=== PATIENT | male | born 1945 | race Caucasian/White ===

== ENCOUNTER 2016-06-16 14:16 | Emergency (ER) | payer OTHER, MEDICARE ==
[~2016-06-16] VITALS: Ht 175.3 cm; Wt 106.0 kg
[~2016-06-16 14:16] MED LIST: APIX1TAB3 PO; ASPI81TA28 PO; ATOR-24 PO; CHOL100010 PO; COEN100C3 PO; GLC/500 PO; HYDR25TA4 PO; LISI40TA PO; METO1TAB69 PO; OXYC-57 PO; POTA10CA28 PO
[2016-06-16 14:19] VITALS: TEMP 36.6; Ht 175.3 cm; Wt 106.0 kg
[2016-06-16] MEDS ORDERED: CHOL100010 PO (15:03)
[2016-06-16] MEDS ORDERED: METF500T5 PO (15:03)
--- NOTE | 2016-06-16 15:16 | DIAGNOSTIC IMAGING REPORT ---
ULTRASOUND LEFT LOWER EXTREMITY VENOUS CLINICAL HISTORY: Left leg pain. COMPARISON STUDY: No priors. TECHNIQUE: Real-time, grayscale, and color Doppler sonography of the deep veins of the left lower extremity was performed from the inguinal crease to the calf. Compression and augmentation were utilized. FINDINGS: There is no sonographic evidence of deep venous thrombosis identified in the left lower extremity. The common femoral, superficial femoral, and popliteal veins are patent and normally compressible. The greater saphenous vein and the profunda femoris vein at the junction with the common femoral vein are clear. The visualized calf veins are patent. A complex popliteal cyst measures 5.2 x 1.4 x 2.6 cm. IMPRESSION: 1. There is no sonographic evidence of deep venous thrombosis identified in the left lower extremity. 2. Popliteal cyst. Electronically signed by: John Vale M.D. 06/16/2016 3:15 PM Dictated Date/Time: 06/16/2016 3:14 PM
[2016-06-16 15:43] VITALS: BP 203/79; PULSE 52; O2SAT 95
--- NOTE | 2016-06-16 15:57 | EMERGENCY ROOM VISIT NOTE ---
History Report prepared by Dario: Jeni Solano Under the Supervision of: Dr. Victoria Xiong D.O. First contact with patient: 14:27 Chief Complaint: LEG PAIN,LEG INJURY Stated Complaint: L LEG PAIN History of Present Illness The patient is a 70 year old male who presents to the Emergency Room with complaints of persistent left leg pain starting last week. He states that he is experiencing pain in the left calf and feeling sore in his upper thigh. He had a stent placed in his left external iliac artery in March of 2016. He is on baby aspirin and Eliquis. He reports that the pain worsens when he walks. He denies any SOB, abdominal pain, changes in bowel movements, or urinary symptoms. Source of History: patient Onset: last week Position: leg (left) Modifying Factors (Worsening): other (walking) Associated Symptoms: No SOB, No abdominal pain, No urinary symptoms Note: Pt denies any changes to bowel movements. Review of Systems See HPI for pertinent positives & negatives. A total of 10 systems reviewed and were otherwise negative. Past Medical & Surgical Medical Problems: (1) Claudication in peripheral vascular disease (2) DDD (degenerative disc disease) Family History Patient reports no known family medical history. Social History Smoking Status: Former Smoker Drug Use: none Marital Status: Occupation Status: retired Current/Historical Medications Scheduled Apixaban (Eliquis), 5 MG PO BID Aspirin (Aspirin Ec), 81 MG PO QAM Atorvastatin (Lipitor), 40 MG PO QPM Cholecalciferol (Vitamin D), 1,000 UNIT PO QAM Coenzyme Q10 (Ubidecarenone) (Co Q-10), 100 MG PO QAM Hydrochlorothiazide (Hctz), 25 MG PO QAM Lisinopril (Zestril), 40 MG PO QAM Metformin Hcl Er (Glucophage Er), 500 MG PO BID Metoprolol Succ (Toprol Xl) (Toprol-Xl ), 100 MG PO QAM Potassium Chloride (Micro-K Ext Rel), 10 MEQ PO BID Scheduled PRN Oxycodone/Acetaminophen 5MG/325MG (Percocet 5MG/325MG), 1-2 TABLETS PO Q4H PRN for Pain Allergies Coded Allergies: No Known Allergies (Unverified , 06/16/16) Physical Exam Vital Signs Date Time Temp Pulse Resp B/P Pulse Ox O2 Delivery O2 Flow Rate FiO2 06/16/16 15:43 52 16 203/79 95 06/16/16 15:29 52 16 203/79 95 Room Air 06/16/16 14:19 36.6 55 16 240/78 97 Room Air Physical Exam HEENT: Head - normocephalic and atraumatic Pupils are equal, round, and reactive to light. Extraocular eye muscles are intact, and sclera are anicteric. Nose - moist nasal mucosa without discharge. Mouth - moist buccal mucosa. Oropharynx is nonerythematous and there is no tonsillar exudate or edema noted. Neck: Supple; no JVD, nuchal rigidity, cervical lymphadenopathy. Heart: Regular rate and rhythm. There is a normal S1 and S2 with no murmurs, clicks, or gallops appreciated. Lungs: Clear to auscultation bilaterally with no wheezes, rales, or rhonchi. Abdomen: Soft, completely nontender, nondistended, with good bowel sounds. There are no palpable pulsatile masses or hepatosplenomegaly. There is no guarding, rigidity, or rebound noted. Extremities: No evidence of cyanosis, clubbing. There are easily palpable peripheral pulses. Tenderness with palpation over medial left calf and posterior calf. Some fullness noted. No palpable cords. Both feet are warm to touch and have normal sensation. There is no discoloration to the feet. Skin: warm and dry with good turgor and no rashes. Medical Decision & Procedures ER Provider Diagnostic Interpretation: Radiology results as stated below per my review and the radiologist's interpretation: ULTRASOUND LEFT LOWER EXTREMITY VENOUS CLINICAL HISTORY: Left leg pain. COMPARISON STUDY: No priors. TECHNIQUE: Real-time, grayscale, and color Doppler sonography of the deep veins of the left lower extremity was performed from the inguinal crease to the calf. Compression and augmentation were utilized. FINDINGS: There is no sonographic evidence of deep venous thrombosis identified in the left lower extremity. The common femoral, superficial femoral, and popliteal veins are patent and normally compressible. The greater saphenous vein and the profunda femoris vein at the junction with the common femoral vein are clear. The visualized calf veins are patent. A complex popliteal cyst measures 5.2 x 1.4 x 2.6 cm. IMPRESSION: 1. There is no sonographic evidence of deep venous thrombosis identified in the left lower extremity. 2. Popliteal cyst. Electronically signed by: John Vale M.D. 06/16/2016 3:15 PM Dictated Date/Time: 06/16/2016 3:14 PM ED Course 1429: The patient was evaluated in room C3. A complete history and physical examination were performed. Nursing notes and previous electronic medical records were reviewed. The patient went for ultrasound of the left lower extremity to rule out DVT. 1533: I reevaluated the patient. I updated him on the US results. He remembered that he started doing leg exercises with 5 lbs weights last week. I discussed the treatment plan with him. He expressed understanding and agreement. He will be discharged home. Medical Decision The patient is a 70 year old male who presents to the ED with left leg pain. Differential diagnosis includes DVT, femoral strain, stent reocclusion. The US shows no DVT. The likelihood of a DVT was pretty low as the patient is on Eliquis. I do not suspect reocclusion of the stent in the left external iliac artery. The patient does not have any symptoms of claudication. I've asked the patient to avoid lifting weights with the legs over the next week. If the pain persists, he can follow up with his vascular surgeon. Impression Primary Impression: Pain of left calf Scribe Attestation The scribe's documentation has been prepared under my direction and personally reviewed by me in its entirety. I confirm that the note above accurately reflects all work, treatment, procedures, and medical decision making performed by me. Departure Information Dispostion Home / Self-Care Referrals Armando Tovar M.D. (PCP) Forms HOME CARE DOCUMENTATION FORM, IMPORTANT VISIT INFORMATION Patient Instructions [facility] Additional Instructions Rest your left leg. Avoid lifting weights with the leg over the next week. Use tylenol for pain
== END 2016-06-16 15:44 | disposition home or self-care (01) ==
LOC: C.EDB 14:18 → C.EDC 15:44
DX: M79.662 Pain in left lower leg (principal); I73.9 Peripheral vascular disease, unspecified; Z87.891 Personal history of nicotine dependence; Z98.890 Other specified postprocedural states; Z79.82 Long term (current) use of aspirin; Z79.01 Long term (current) use of anticoagulants

== ENCOUNTER 2019-11-22 04:57 | Observation (INO) ==
--- NOTE | 2019-11-03 09:04 | PAT Medication Instructions ---
Medication Instructions Date of Service November 03, 2019 Home Medications Medication Instructions Recorded blood sugar diagnostic #2 box 11/23/18 apixaban 5 mg tablet 5 mg PO BID #180 tab 04/14/19 aspirin [Aspirin Low Dose] 81 mg PO QAM atorvastatin 40 mg PO HS cholecalciferol (vitamin D3) [Vitamin D3] 1,000 unit PO QAM coenzyme Q10 [CoQ-10] 100 mg PO QAM glipizide 2.5 mg PO QAM hydrochlorothiazide 25 mg PO QAM lisinopril 40 mg PO QAM metformin 1,000 mg PO BID metoprolol succinate 100 mg PO QAM potassium chloride 10 meq PO BID amlodipine 5 mg tablet 5 mg PO QAM apixaban 5 mg tablet 5 mg PO BID naproxen sodium [Aleve] 440 mg PO BID PRN ASK your surgeon for instructions naproxen sodium [Aleve] 440 mg PO BID PRN ASK your prescriber and surgeon apixaban 5 mg tablet 5 mg PO BID (in order for spinal anesthesia, Apixaban/Eliquis needs to be stopped 72 hours/3 days before surgery. Please check if okay with doctor that prescribes this to you) STOP taking 2 weeks before surgery (or as soon as possible if surgery is within 2 weeks) coenzyme Q10 [CoQ-10] 100 mg PO QAM DO NOT take the morning of surgery cholecalciferol (vitamin D3) [Vitamin D3] 1,000 unit PO QAM glipizide 2.5 mg PO QAM hydrochlorothiazide 25 mg PO QAM lisinopril 40 mg PO QAM metformin 1,000 mg PO BID potassium chloride 10 meq PO BID Take morning of surgery With a small sip of water, OTHERWISE NOTHING TO EAT OR DRINK AFTER MIDNIGHT: aspirin [Aspirin Low Dose] 81 mg PO QAM metoprolol succinate 100 mg PO QAM amlodipine 5 mg tablet 5 mg PO QAM Take evening before surgery atorvastatin 40 mg PO HS metformin 1,000 mg PO BID potassium chloride 10 meq PO BID Other Notes If you have any questions please call us at [phone] or [phone] or [phone] or [phone]
--- NOTE | 2019-11-05 10:25 | Anesthesiology Consultation ---
Date of Service November 05, 2019 Assessment & Plan (1) Encounter for pre-operative examination: *Per PAT assessment on 11/04: Travel screen- Lives in [facility] (retired). [place] [facility] for doctor appt. No travel x 2+ weeks (prior to that, 3+ weeks ago, gypsy adam [facility] [place] grandson). + social distancing/wears PPE. No known COVID-19 positive contacts. No current COVID-19 related symptoms. Surgeon [place] [facility] [place] Awaiting [place]. - Cardiology note: 10/29/19: "Patient is an acceptable surgical risk to proceed with surgery provided he take his usual doses of Metoprolol and Amlodipine... Hold Eliquis x 3 days leading up to surgery." - Eliquis instructions: patient made aware that in order for spinal anesthesia, Eliquis needs to be held 3 days/72 hours prior to surgery. Patient voiced under standing/will check if okay with prescriber. To continue ASA perioperatively. - Check BSG AM DOS - Hx glidescope intubation: Left shoulder arthroscopy: 07/08/18: Grade view 2, Glidescope #4, ETT 8.0 at [facility] Chart Review Chart Review: Acceptable Risk for Surgery (pending surgeon-ordered PCP clearance (Dr. Neri)) and Patient seen in Pre Admission Testing Teaching & Discussion Pre-Anesthesia Teaching/Discussion Notes: Instructed NPO after midnight before surgery,except medications with 15 cc of water. Medication instructions provided according to the PAT guidelines. History Surgery Operation Date: 11/22/19 09:30 Proposed Procedures p Right Total Knee Arthroplasty - Pascual Toussaint MD Height/Weight Height: 5 ft 9 in Weight: 112.6 kg Allergies Allergy/AdvReac Type Severity Reaction Status Date / Time No Known Drug Allergies Allergy Verified 11/02/19 11:50 Medications Home Medications Medication Instructions Recorded Confirmed Last Taken aspirin [Aspirin Low Dose] 81 mg PO QAM 05/19/18 11/02/19 10/25/18 atorvastatin 40 mg PO HS 05/19/18 11/02/19 10/25/18 18:00 cholecalciferol (vitamin D3) 1,000 unit PO QAM 02/12/19 07/28/20 07/22/19 [Vitamin D3] coenzyme Q10 [CoQ-10] 100 mg PO QAM 05/19/18 11/02/19 10/25/18 glipizide 2.5 mg PO QAM 05/19/18 11/02/19 10/25/18 06:00 hydrochlorothiazide 25 mg PO QAM 05/19/18 11/02/19 10/25/18 06:00 lisinopril 40 mg PO QAM 05/19/18 11/02/19 10/25/18 06:00 metformin 1,000 mg PO BID 05/19/18 11/02/19 10/23/18 metoprolol succinate 100 mg PO QAM 05/19/18 11/02/19 10/26/18 05:00 potassium chloride 10 meq PO BID 05/19/18 11/02/19 10/25/18 18:00 blood sugar diagnostic #2 box 11/23/18 10/27/19 Unknown amlodipine 5 mg tablet 5 mg PO QAM tab 12/21/18 11/02/19 Unknown apixaban 5 mg tablet 5 mg PO BID #180 tab 04/14/19 11/02/19 Unknown naproxen sodium [Aleve] 440 mg PO BID PRN 11/02/19 11/02/19 Unknown Past Medical History Medical History Atrial fibrillation on Eliquis Chronic back pain Claudication in peripheral vascular disease Diabetes mellitus, type 2 NIDDM Diverticular disease Dyslipidemia Hyperlipidemia Hypertension Obesity Osteoarthritis PAD (peripheral artery disease) s/p Left Common Femoral Endarterectomy and Left Iliac Artery Stent (2015) Temporomandibular joint disorder occasional clicking, no locking Exercise / Class Metabolic Activity II 4-5 Yardwork/Stairs/Walk up hill (no chest pain or sob with one flight of stairs (activity is limited d/t knee pain)) Past Family History Family History Father Family history of diabetes mellitus Heart disease Brother Family history of diabetes mellitus Mother Heart disease Hypertension Past Surgical History Surgical History (Updated 11/05/19 @ 12:26 by Miroslava La) Fusion of spine LUMBAR X2 History of arthroscopy of shoulder History of cataract surgery BILATERAL History of colonoscopy History of difficult intubation Left shoulder arthroscopy: 07/08/18: Grade view 2, Glidescope #4, ETT 8.0 at [facility] History of laminectomy LUMBAR X3 History of tonsillectomy History of total knee replacement LEFT S/P vascular surgery 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 Large epiglottis. Unable to lift out of view. Mijares 3 able to move epiglottic but unable to visualize cors even with cricoid pressure. Glidescope#4 good view of cords. Easy placement of ETT. Past Anesthesia History Difficult Airway, No Family Hx of Anesthesia Complications and Other (Awareness with left TKA) History of PONV No Hx of PONV and Hx of Motion Sickness (rare) Social History Smoking Status: Former smoker Do You Dip or Chew Tobacco: No Smoking End Date: QUIT 15+ YRS AGO Hx Alcohol Use: Yes Alcohol type: beer alcohol intake frequency: a few times a week Hx Substance Use: No substance use type: does not use Review of Systems Patient denies chest pain, shortness of breath, dyspnea on exertion, fever, chills, cough, wheezing, palpitations. Physical Exam Vital Signs VITALS BP 165/81 P 71 TEMP 97.8 SP02 98%RA RESP 16 PHYSICAL Full neck and c-spine range of motion. Full TMJ range of motion. TMD 3 finger breaths Mallampati Score 2 Dentition: missing molars Lungs: clear throughout to auscultation Cardiac: regular rate, irregular rhythm, no murmurs noted Spine: normal Carotid arteries: negative bruit Extremities: no edema Short, thick neck Testing Laboratory Results 11/05/19 10:52 11/05/19 10:52 PT 11.4 Seconds (9.0-12.0) 11/05/19 10:52 INR 1.1 (0.9-1.1) 11/05/19 10:52 APTT 29.9 Seconds (21.0-31.0) 11/05/19 10:52 Hemoglobin A1c 6.9 % (4.5-5.6) H 11/05/19 10:52 Urine Color Yellow 11/05/19 Unknown Urine Appearance Clear (Clear) 11/05/19 Unknown Urine pH 6.5 (4.5-7.5) 11/05/19 Unknown Ur Specific [place] 1.009 (1.000-1.030) 11/05/19 Unknown Urine Protein Negative (Negative) 11/05/19 Unknown Urine Glucose (UA) Negative (Negative) 11/05/19 Unknown Urine Ketones Negative (Negative) 11/05/19 Unknown Urine Nitrite Negative (Negative) 11/05/19 Unknown Ur Leukocyte Esterase Negative (Negative) 11/05/19 Unknown Blood Type A Positive 11/05/19 10:52 Antibody Screen NEGATIVE 11/05/19 10:52 Electrocardiogram Date: 11/05/19 A. fib at 67bpm. Chest X-Ray Date: 11/05/19 No acute process. Mild cardiomegaly. Stress Test Date: 09/06/16 Type: exercise Negative submaximal stress test for ischemia. 7.[address] changes.
--- NOTE | 2019-11-05 11:40 | XRay Report ---
XR chest Pre-admission PA/Lat CLINICAL HISTORY: pat dyspnea COMPARISON STUDY: No previous studies for comparison. FINDINGS: Mild stable cardiomegaly. Diaphragms are smooth. Lungs are clear. IMPRESSION: No acute process. Mild cardiomegaly. ACT 112: Negative or not required by law. The above report was generated using voice recognition software. It may contain grammatical, syntax or spelling errors. Electronically signed by: Maikel Alfaro M.D. 11/05/2019 11:38 AM
[2019-11-05 11:58] LABS: Basophils # (auto) 0.02 K/uL (0-0.2); Basophils % (auto) 0.3 %; Eosinophils # (auto) 0.16 K/uL (0-0.5); Eosinophils % (auto) 2.4 %; Hematocrit (blood only) 40.8 % (42-52); Hemoglobin 14.5 g/dL (14.0-18.0); Immature Granulocytes # (auto) 0.02 K/uL (0.00-0.02); Immature Granulocytes % (auto) 0.3 %; Lymphocytes # (auto) 2.27 K/uL (1.2-3.4); Lymphocytes % (auto) 34.7 %; Mean Corpuscular Hemoglobin 33.2 pg (25-34); Mean Corpuscular Hgb Conc 35.5 g/dL (32-36); Mean Corpuscular Volume 93.4 fL (80-100); Mean Platelet Volume 10.2 fL (7.4-10.4); Monocytes # (auto) 0.74 K/uL (0.11-0.59); Monocytes % (auto) 11.3 %; Neutrophils # (auto) 3.33 K/uL (1.4-6.5); Platelet Count 200 K/uL (130-400); RDW Standard Deviation 44.4 fL (36.4-46.3); Red Blood Count 4.37 M/uL (4.7-6.1); White Blood Count 6.54 K/uL (4.8-10.8)
[2019-11-05 12:04] LABS: Appearance Urine Clear (Clear); Bilirubin Urine Negative (Negative); Blood Urine Negative (Negative); Color Urine Yellow; Glucose Urine UA Negative (Negative); Ketones Urine Negative (Negative); Leukocyte Esterase Urine Negative (Negative); Nitrite Urine Negative (Negative); Protein Urine Negative (Negative); Specific Gravity Urine 1.009 (1.000-1.030); Urobilinogen Urine Negative (Negative); pH Urine 6.5 (4.5-7.5)
[2019-11-05 12:05] LABS: Calcium 9.5 mg/dl (8.5-10.1); Creatinine Clr Calc Pharmacy 67.1 ml/min; Est GFR (African American) 66.7; Est GFR (Non-African American) 57.6; Potassium 4.3 mmol/L (3.5-5.1)
[2019-11-05 12:10] LABS: INR 1.1 (0.9-1.1); Partial Thromboplastin Ratio 1.1; Partial Thromboplastin Time 29.9 Seconds (21.0-31.0); Prothrombin Time 11.4 Seconds (9.0-12.0)
[2019-11-05 12:47] LABS: Estimated Average Glucose 151 mg/dl; Hemoglobin A1C 6.9 % (4.5-5.6)
--- NOTE | 2019-11-06 07:13 | Electrocardiogram Report ---
Test Reason : Blood Pressure : / mmHG Vent. Rate : 067 BPM Atrial Rate : 357 BPM P-R Int : 000 ms QRS Dur : 084 ms QT Int : 396 ms P-R-T Axes : 000 058 054 degrees QTc Int : 418 ms Atrial fibrillation Abnormal ECG When compared with ECG of 29-MAR-2016 09:06, No significant change was found Confirmed by Leobardo Arzate ([id number]) on 11/06/2019 7:12:54 AM Referred By: Pascual Toussaint Confirmed By:Leobardo Arzate
--- NOTE | 2019-11-18 20:49 | History and Physical Report ---
DATE OF ADMISSION: 11/22/2019 CHIEF COMPLAINT: Chronic right knee pain. HISTORY OF PRESENT ILLNESS: This is a 74-year-old male patient of Dr. Toussaint'clarissa complaining of chronic right knee pain, longstanding, now progressively getting worse. The patient has failed conservative treatment including intraarticular injections, anti-inflammatories and the use of a brace. The patient has increased pain with weightbearing activities and his pain does interfere with his activities of daily living. The patient has been diagnosed with end-stage osteoarthritis in his right knee per clinical and radiographic exams. The patient wished to proceed with a right total knee arthroplasty. PAST MEDICAL HISTORY: Hypertension, hypercholesterolemia, atrial fibrillation, diabetes mellitus, rheumatoid arthritis, spine problems, sciatica, obesity and he reports a history of difficult intubation. SOCIAL HISTORY: Nonsmoker and nondrinker. PAST SURGICAL HISTORY: Back surgery x5, left shoulder scope, tonsillectomy, left total knee replacement and stent placement in his right leg. FAMILY HISTORY: Noncontributory. REVIEW OF SYSTEMS: Chronic right knee pain, otherwise denies any shortness of breath, chest pain, nausea, vomiting or any other joint complaints. MEDICATIONS: 1. Aspirin 81 mg daily. 2. Potassium chloride 10 mEq twice daily. 3. Atorvastatin 40 mg daily. 4. Metformin 500 mg 2 tablets twice daily. 5. Lisinopril 40 mg daily. 6. Hydrochlorothiazide 25 mg daily. 7. Metoprolol 100 mg daily. 8. CoQ10 30 mg daily. 9. Eliquis 5 mg twice daily. 10. Vitamin D3 1000 units daily. 11. Amlodipine 5 mg daily. 12. Glipizide 2.5 mg daily with breakfast. ALLERGIES: No known drug allergies. PHYSICAL EXAMINATION: GENERAL: Well-developed, well-nourished 74-year-old male in no acute distress. He is alert and oriented x3 and pleasant. HEENT: Normocephalic, atraumatic. Extraocular motions are intact. Pupils are equal and reactive to light. HEART: Has an irregular beat with regular rhythm associated with atrial fibrillation. LUNGS: Clear. ABDOMEN: Soft and nontender. Bowel sounds are present. EXTREMITIES: Right lower extremity range of motion 0-130. Varus deformity. Medial joint line tenderness, positive Cm's. 5/5 strength with pain, positive crepitation. Neurologically and neurovascularly intact in his right lower extremity. DIAGNOSES: Right knee end-stage osteoarthritis, hypertension, hypercholesterolemia, atrial fibrillation, diabetes mellitus, rheumatoid arthritis, osteoarthritis, spine problems, sciatica and obesity. He does have a history of difficult intubation. PLAN: The patient was advised of his diagnosis. Indications, risks, benefits, postop course have all been reviewed. The patient wished to proceed with a right total knee arthroplasty. Necessary consent forms, preoperative testing and clearances will be obtained.
[2019-11-22] MEDS ORDERED: ROPIVACAINE 0.5% HCL/PF 150 MG, BUPIVACAINE 0.5% MPF 30 ML, EPINEPHrine 30MG/30ML (OR U... INSTIL SCH (06:00)
[2019-11-22] MEDS ORDERED: FAMOTIDINE 20 MG TAB PO SCH (06:00)
[2019-11-22] MEDS ORDERED: GABAPENTIN 300 MG CAP PO SCH (06:00)
[2019-11-22] MEDS ORDERED: METOCLOPRAMIDE HCL 10 MG TABLET PO SCH (06:00)
[2019-11-22] MEDS ORDERED: CEFAZOLIN 2000MG 2,000 MG/15 ML SYR IV SCH (06:00)
[2019-11-22] MEDS ORDERED: CeleBREX 200 MG CAP PO SCH (06:00)
[2019-11-22] MEDS ORDERED: LR 500ML BOLUS, THEN 15ML/HR IV SCH (06:00)
[2019-11-22] MEDS ORDERED: ACETAMINOPHEN 500 MG TAB PO SCH (06:00)
[2019-11-22] MEDS ORDERED: BUPIVACAINE/EPINEPHRINE 0.25% 1:200,000 30 ML VIAL ONE (06:26)
[2019-11-22] MEDS ORDERED: DEXAMETHASONE SOD INJ 4 MG/ML VIAL ONE (06:27)
[2019-11-22] MEDS ORDERED: BUPIVACAINE 0.5 % 5 MG/1 ML PF 10ML VIAL ONE (06:34)
[2019-11-22] MEDS ORDERED: ORTHO JOINT ANESTHETIC ONE (06:38)
[2019-11-22] MEDS ORDERED: BACITRACIN INJ 50,000 UNIT VIAL ONE (06:38)
[2019-11-22] MEDS ORDERED: fentaNYL citrate 100 MCG/2 ML VIAL ONE (06:41)
[2019-11-22] MEDS ORDERED: MIDAZOLAM HCL 1 MG/ML 2ML VIAL ONE (06:41)
[2019-11-22] MEDS ORDERED: ONDANSETRON INJ 2 MG/ML 2 ML VIAL IV PRN ×2 (06:49→10:09)
[2019-11-22] MEDS ORDERED: fentaNYL citrate 100 MCG/2 ML VIAL IV PRN (06:49)
[2019-11-22] MEDS ORDERED: ATROPINE SULFATE 0.1 MG/ML 10ML SYR IV PRN (06:49)
[2019-11-22] MEDS ORDERED: ePHEDrine sulfate 50 MG/ML AMP IV PRN (06:49)
[2019-11-22] MEDS ORDERED: LIDOCAINE HCL 2% 2 ML VIAL/AMP(20MG/ML) INFIL ONE (06:52)
[2019-11-22] MEDS ORDERED: PROPOFOL IV EMULSION 10 MG/ML 20 ML VIAL IV ONE (06:52)
[2019-11-22] MEDS ORDERED: ONDANSETRON INJ 2 MG/ML 2 ML VIAL ONE (06:52)
--- NOTE | 2019-11-22 06:59 | History & Physical Bridge Note ---
Date of Service November 22, 2019 History & Physical Bridge Note I have examined the patient, reviewed the History & Physical and in the interval since the performance of the History & Physical I have noted the following changes of clinical significance: no changes noted
[2019-11-22] MEDS ORDERED: PHENYLEPHRINE 100MCG/ML 5ML SYR ONE ×2 (07:58→08:34)
--- NOTE | 2019-11-22 08:51 | Operative Report ---
Post Operative Report Pre & Post Diagnosis Operation Date: 11/22/19 07:00 Pre-Op Diagnosis: Unilateral Primary Osteoarthritis, Right Knee Post-Op Diagnosis: Unilateral Primary Osteoarthritis, Right Knee I identified the patient and participated in the time-out.: Yes Procedure Operation Date: 11/22/19 07:00 Actual Procedures p Right Total Knee Arthroplasty(Right) - Pascual Toussaint MD Surgeon Pascual Toussaint MD Tree Sapper Celestine GRANGER Estimated Blood Loss 5 Findings Consistent with Post-Op Diagnosis Specimens Bone cuts Drains 2 Hemovac Anesthesia Type MAC Spinal Regional Disposition Accompanied Patient To Recovery: No Disposition: Recovery Room Indications 72-year-old male with chronic progressive osteoarthritis right knee failed conservative management. Prior successful left knee replacement. Wants proceed with right knee replacement. X-rays demonstrate varus knee [id number] medial compartment Description of Procedure The patient was taken to the operating room and anesthetized under spinal MAC regional. Patient was placed supine on the the operating table. A pneumatic tourniquet was placed about the right upper thigh. The knee exam demonstrated varus knee good range of motion no instability. The involved leg was elevated exsanguinated with Esmarch bandage and the pneumatic tourniquet was raised to 325 millimeters mercury. A longitudinal incision was made across the anterior knee. Skin flaps were elevated. An incision was made into the medial retinaculum and extended up into the mid third of the quadriceps tendon and extended down to the tibial tubercle. Intra-articular findings demonstrated primarily medial compartment osteoarthritis grade IV chondromalacia medial femoral condyle and posterior medial tibial plateau. The knee was exposed by excising cruciate ligaments and menisci. The infrapatellar fat pad was resected. The fat pad over the anterior femur at the upper aspect of the articular surface was resected for placement of the component in that area. A subperiosteal peel lateral release was performed around the patella The Verdin [employer] Nephew journey 2.0 posterior stabilized total knee arthroplasty system was utilized for the procedure. The guide karla was placed into the femur and the distal femoral cutting guide was adjusted and pinned in position. The cut was made at 5 degrees of valgus at standard distal femoral cut. Femur sized for size 6 femoral component. The distal femoral cut was made. The size 6, 5 in 1 cutting block was placed. The anterior posterior and chamfer cuts were made. The knee was extended and a free hand cut technique was performed to the patella. The patella with was measured and the width was reproduced using a 35 symmetrical patella component. 3 drill holes are made for the patella component pegs. The tibia was then subluxed. The custom tibial cutting block was pinned in position and the proximal tibial cut was made with the oscillating saw. The size 5 tibial trial was externally rotated in line with the tibial tubercle and pinned in position. The punch for the stem was used. The femoral trial was inserted and centered the notch cutting devices were used and the collet was placed. Tibial trials were used for the insert. Ligamentous balance was achieved through full range of motion with medial posterior medial releases required on the medial side. The size 10 trial gave balanced ligaments through full range of motion. Patella tracking was assessed with range of motion. The patella tracked centrally. The trials were removed. The Orthomix anesthetic cocktail was injected per protocol. The cut bone surfaces and soft tissue were copiously irrigated with antibiotic solution with bacitracin. The final components were cemented with Simplex cement. The final components were Verdin & Nephew journey 2.0 size 6 right femoral component, size 5 tibial baseplate, 10 mm posterior stabilized polyethylene tibial insert, 35 symmetrical patella.. While the cement cured the Betadine soak was used per protocol. When the cement cured the knee was copiously irrigated with pulsatile lavage antibiotic solution with bacitracin. 2 drains were brought out laterally connected to Hemovac. The quadriceps tendon and medial retinaculum were closed with interrupted [id number] #1 Vicryl sutures. The knee was taken through full range of motion and repair was secure. The subcutaneous tissues were closed with 2-0 Vicryl sutures. The skin was closed with esteban. A sterile dressing was applied. The tourniquet was let down and the patient had good capillary refill to the extremity. The patient tolerated the procedure well. My physician assistant professor of philosophy Celestine GRANGER assisted in the procedure including prepping draping leg positioning soft tissue retraction instrument management and assisted in the closure ,dressings application and will participate in postoperative care the patient. I attest to the content of the Intraoperative Record and any orders documented therein. Any exceptions are noted below.
--- NOTE | 2019-11-22 09:45 | XRay Report ---
XR knee RT 1 or 2V routine HISTORY: 74 years-old Male Surgical Post Op right knee total joint arthroplasty COMPARISON: None TECHNIQUE: 2 views of the right knee FINDINGS: Right knee total joint arthroplasty and patella resurfacing. Anterior midline skin esteban are noted along with expected postsurgical soft tissue swelling and deep tissue air with surgical drainage cath eter. No acute fracture, malalignment or retained foreign body. Arterial calcifications are noted. IMPRESSION: Right knee total joint arthroplasty and patella resurfacing with expected postoperative c hanges. ACT 112: Negative or not required by law. The above report was generated using voice recognition software. It may contain grammatical, syntax o r spelling errors. Electronically signed by: Rosalino Smart M.D. 11/22/2019 9:43 AM
[2019-11-22] MEDS ORDERED: bisacodyL 10 MG SUPP PR PRN (10:09)
[2019-11-22] MEDS ORDERED: MAGNESIUM HYDROXIDE SUSP 30 ML UDC PO PRN (10:09)
[2019-11-22] MEDS ORDERED: NALOXONE HCL 0.4 MG/1 ML VIAL/CARP IV PRN (10:09)
[2019-11-22] MEDS ORDERED: HYDROmorphone INJ 0.5 MG/0.5 ML SYR IV PRN (10:09)
--- NOTE | 2019-11-22 10:11 | Anesthesiology Progress Note ---
Date of Service November 22, 2019 Anesthesia Post Procedure Vital Signs Vital Signs: Temp Pulse Pulse Resp BP Pulse Ox 11/22/19 09:55 36.4 C L 70 14 113/66 95 11/22/19 09:45 77 14 122/58 L 95 11/22/19 09:35 73 12 112/65 93 11/22/19 09:25 79 12 113/61 98 11/22/19 09:19 36.6 C 76 14 97/57 L 99 11/22/19 05:39 36.6 C 85 18 167/87 H 95 Transfer of Care Handoff Completed per policy Notes Mental Status: alert / awake / arousable Patient Amnestic to Procedure: Yes Nausea / Vomiting: adequately controlled Pain: adequately controlled Airway Patency, RR, SpO2: stable & adequate BP & HR: stable & adequate Hydration State: stable & adequate Neuraxial Anesthesia: was administered and sensory block is resolving Anesthetic Complications: no major complications apparent
[2019-11-22] MEDS ORDERED: PHARMACY GLYCEMIC MGMT CONSULT PRN (10:22)
[2019-11-22] MEDS ORDERED: GLUCAGON FOR INJ 1 MG VIAL IM PRN (10:30)
[2019-11-22] MEDS ORDERED: DEXTROSE 50% 50 ML SYRINGE IV PRN (10:30)
[2019-11-22] MEDS ORDERED: CARBOHYDRATES FOR HYPOGLYCEMIA PO PRN (10:30)
[2019-11-22] MEDS ORDERED: GLUCOSE 10 TABS/TUBE PO PRN (10:30)
[2019-11-22] MEDS ORDERED: GLUCOSE 40% GEL 15 GM TUBE PO PRN (10:30)
[2019-11-22] MEDS ORDERED: NovoLIN-N (NPH) PER UNIT CHARGE SQ ONE (11:00)
[2019-11-22] MEDS: SODIUM CHLORIDE 0.9% 1000ML 1,000 ML IV SCH ×2 (12:15→21:21)
[2019-11-22] MEDS: INSULIN ASPART 100 UNITS/ML 3 ML PEN SC SCH ×5 (12:19→23:53)
--- NOTE | 2019-11-22 13:20 | Pharmacy Report ---
Glycemic Control Consultation - Date of Service November 22, 2019 - Scope Scope: Glycemic Pharmacist consulted for glycemic control and to write orders per formerly [facility] inpatient glycemic control protocol. - Objective Weight: 117.7 kg Accuchecks BSG (last 24hrs): 11/22/19 11/22/19 11/22/19 05:36 09:22 11:27 POC Glucose 162 H 184 H 200 H HbA1c: Hemoglobin A1c 6.9 % (4.5-5.6) H 11/05/19 10:52 - Recent Pertinent Medications Outpatient Anti-diabetic Regimen: * metformin 1 gm PO BID + glipizide ER 2.5 mg PO daily Risk Factors for Insulin Resistance: * Steroids: dexamethasone 4 mg IV intraoperatively * Recent Surgery: POD 0 for R knee surgery * Diet: T2DM - Assessment & Plan Assessment & Plan: ASSESSMENT: * Mr Chamberlain is a 74 y/o M with a PMH of well controlled T2DM on two oral medications who presents for R knee surgery. Fasting BSG was 162-184 mg/dL. * Pt is maintained on oral antidiabetic agents as an outpatient * Oral agents are not recommended for inpatient use d/t drug interactions, changing PO intake, and difficulty titrating for acute hyper/hypoglycemia. ADA recommends re-initiating outpatient oral agents 1-2 days prior to discharge if/when appropriate if they were held on admission. * Will consider starting metformin tomorrow evening * Start NPH 30 units (weight-based stress of 3) x 1 to cover hyperglycemia from steroids. * Start Novolog weight-based stress of 2-3 for steroid hyperglycemia as well. Added overnight checks. * ADA & AACE recommend a goal blood sugar range 140-180 mg/dl for the majority of critically ill & non-critically ill patients. However, more stringent targets may be selected in individual cases. Will utilize more stringent goal of 110-140mg/dl based on patient age & comorbidities. Additionally, tighter glycemic control is warranted to facilitate wound healing. PLAN FOR INPATIENT GLYCEMIC CONTROL: * Holding outpatient oral diabetes medications - consider starting tomorrow if kidney function and diet okay * Basal insulin * EXPLOSIVE ORDNANCE DISPOSAL SPECIALIST 30 units SQ x 1 * Bolus insulin * NovoLog per scale ACHS or Q6hrs while NPO * Goal Range: Low 110 mg/dL - High 140 mg/dL * Correction Factor: 18 mg/dL/unit * Nutritional / Prandial insulin per carb ratio of 1 unit per 6 grams CHO consumed Recommendation for Discharge * Patient's HbA1C well controlled. Recommend continuing current regimen as an outpatient. * HbA1C = 6.9% * Goal HbA1C is around 7% Thank you.
[2019-11-22] MEDS: CEFAZOLIN 2000MG 2,000 MG/15 ML SYR IV SCH ×2 (14:12→22:10)
[2019-11-22] MEDS: ACETAMINOPHEN 500 MG TAB PO SCH ×2 (14:12→21:04)
--- NOTE | 2019-11-22 16:39 | Hospitalist Consultation ---
Date of Consultation November 22, 2019 Assessment & Plan (1) Status post right knee replacement: - POD#[address] Toussaint - activity and wound care orders as per ortho - pain control with bowel regimen - PT/OT - monitor H/H for acute blood loss anemia and transfuse blood products PRN - EBL 5cc (2) Atrial fibrillation, permanent: -anticoagulated on Eliquis - resume tomorrow per ortho -rate controlled on metoprolol (3) Diabetes mellitus, type 2: -hgb a1c 6.9 10/2019 -hold oral agents and utilize insulin protocol while hospitalized -glycemic pharmacy consult placed by ortho (4) Hypertension: -BP controlled, continue metoprolol and lisinopril -hold HCTZ pending AM labs (5) DVT prophylaxis: -TEDs/SCDs, resume Eliquis tomorrow AM per ortho Thank you for this consultation. We will follow the patient with you during their hospital stay. You [facility] via pager @ [phone]. Supervising Physician Co-Signing Physician Notes I have seen and examined the patient and have discussed the case with the provider above. I agree with the assessment and plan as stated. 74 yo M who is feeling well without pain or nausea in his immediate post-op state. Physical exam reveals normal cardiac and lung exams. He reports walking today and feels good about it. Currently BP is at goal, however, HCTZ is on hold while continuing Lisinopril. Continue to monitor his BP closely and add HCTZ back at dc if not earlier. Also, blood sugar is currently at goal and agree with basal bolus insulin. Thank you for this consultation and we will follow this patient for the remainder of this hospitalization. DO Krunal History of Present Illness Reason for Consultation: Postop medical management Requesting Physician: Dr. Toussaint Attending Physician: Dr. Hector History of Present Illness 74 year old male with PMH DM type II, HTN, chronic afib on Eliquis, and other problems listed below who is s/p right TKA today by Dr. Toussaint. Post operatively the patient is doing well. He reports his pain is well controlled. Denies numbness and tingling to the lower extremities. No chest pain, shortness of breath, or palpitations. Denies lightheadedness and dizziness. No abdominal pain or nausea. He has not voided since surgery. Allergies Allergy/AdvReac Type Severity Reaction Status Date / Time No Known Drug Allergies Allergy Verified 11/02/19 11:50 Home Medications Home Medications Medication Instructions Recorded Confirmed Type aspirin [Aspirin Low Dose] 81 mg PO QAM 05/19/18 11/22/19 History atorvastatin 40 mg PO HS 05/19/18 11/22/19 History cholecalciferol (vitamin D3) 1,000 unit PO QAM 05/19/18 11/22/19 History [Vitamin D3] coenzyme Q10 [CoQ-10] 100 mg PO QAM 05/19/18 11/22/19 History glipizide 2.5 mg PO QAM 05/19/18 11/22/19 History hydrochlorothiazide 25 mg PO QAM 05/19/18 11/22/19 History lisinopril 40 mg PO QAM 05/19/18 11/22/19 History metformin 1,000 mg PO BID 05/19/18 11/22/19 History metoprolol succinate 100 mg PO QAM 05/19/18 11/22/19 History potassium chloride 10 meq PO BID 05/19/18 11/22/19 History blood sugar diagnostic #2 box 11/23/18 10/27/19 Rx amlodipine 5 mg tablet 5 mg PO QAM tab 12/21/18 11/22/19 History apixaban 5 mg tablet 5 mg PO BID #180 tab 04/14/19 11/22/19 Rx naproxen sodium [Aleve] 440 mg PO BID PRN 11/02/19 11/22/19 History Patient History Medical History Atrial fibrillation on Eliquis Chronic back pain Claudication in peripheral vascular disease Diabetes mellitus, type 2 NIDDM Diverticular disease Dyslipidemia Hyperlipidemia Hypertension Obesity Osteoarthritis PAD (peripheral artery disease) s/p Left Common Femoral Endarterectomy and Left Iliac Artery Stent (2015) Temporomandibular joint disorder occasional clicking, no locking Surgical History Fusion of spine LUMBAR X2 History of arthroscopy of shoulder History of cataract surgery BILATERAL History of colonoscopy History of difficult intubation Left shoulder arthroscopy: 07/08/18: Grade view 2, Glidescope #4, ETT 8.0 at [facility] History of laminectomy LUMBAR X3 History of tonsillectomy History of total knee replacement LEFT S/P vascular surgery 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 Large epiglottis. Unable to lift out of view. Mijares 3 able to move epiglottic but unable to visualize cors even with cricoid pressure. Glidescope#4 good view of cords. Easy placement of ETT. Family History Father Family history of diabetes mellitus Heart disease Brother Family history of diabetes mellitus Mother Heart disease Hypertension Social History Smoking Status: Former smoker Smoking End Date: QUIT 15+ YRS AGO; Second Hand Exposure: Yes ( A CHILD); Do You Dip or Chew Tobacco: No; Hx Alcohol Use: Yes Alcohol type: beer Hx Substance Use: No Preferred Language: Irish Communication Ability: Effective Reclamation Engineer Required: No Beliefs That Will Affect Care: None marital status: Current Living Situation: Spouse current occupational status: retired Other Information That Helps Us Care for You: No Feels Safe at Home: Yes Safety Concerns: Feels Safe At This Time Review of Systems Review of Systems: ROS per HPI, all other systems reviewed and negative Physical Exam Constitutional: WD/WN, vitals as above Eyes: PERRL, conjunctivae normal, anicteric sclerae ENMT: external ear and nose normal, oropharynx normal Respiratory: normal respiratory effort, lungs clear to auscultation Cardiovascular: Rate/Rhythm: regular rate and + irregularly irregular Vessels: normal peripheral pulses Extremities: no edema Gastrointestinal (Abdomen): normal bowel sounds, soft, nontender, no hepatosplenomegaly Musculoskeletal: no cyanosis or clubbing, extremities motor strength 5/5 s/p right knee surgery, surgical dressing dry and intact, drain in place draining bloody drainage, CSM checks intact to RLE Skin: no rashes, warm and dry Neurologic: PERRL, EOMI, accommodation nl, no face palsy, no dysarthria Psychiatric: A+Ox3, euthymic affect Results & Data Results & Data ([facility]) Vital Signs (Past 12 Hours) Vital Signs Temp Pulse Pulse Resp BP Pulse Ox 11/22/19 15:16 36.7 C 69 18 130/74 93 11/22/19 13:16 36.5 C 72 72 H 143/73 H 95 11/22/19 12:21 36.6 C 81 17 149/84 H 95 11/22/19 11:14 36.6 C 70 16 137/71 98 11/22/19 10:42 67 18 127/75 97 11/22/19 10:10 36.5 C 72 16 129/71 98 11/22/19 09:55 36.4 C L 70 14 113/66 95 11/22/19 09:45 77 14 122/58 L 95 11/22/19 09:35 73 12 112/65 93 11/22/19 09:25 79 12 113/61 98 11/22/19 09:19 36.6 C 76 14 97/57 L 99 11/22/19 05:39 36.6 C 85 18 167/87 H 95 Medications Administered Current Inpatient Medications Acetaminophen (Acetaminophen 500 Mg Tab) 1,000 mg PO Q8 FERDINAND Stop: 12/22/19 13:59 Last Admin: 11/22/19 14:12 Dose: 1,000 mg Documented by: Amlodipine Besylate (Amlodipine Besylate 5 Mg Tab) 5 mg PO QAM FERDINAND Stop: 12/23/19 08:59 Apixaban (Apixaban 5 Mg Tablet) 5 mg PO BID FERDINAND Stop: 12/23/19 08:59 Aspirin (Aspirin 81 Mg Ectab) 81 mg PO QAM FERDINAND Stop: 12/23/19 08:59 Atorvastatin Calcium (Atorvastatin 40 Mg Tab) 40 mg PO HS FERDINAND Stop: 12/22/19 20:59 Bisacodyl (Bisacodyl 10 Mg Supp) 10 mg TX DAILY PRN PRN Reason: Constipation Stop: 12/22/19 10:08 Dextrose (Dextrose 50% 50 Ml Syringe) 25 - 50 ml IV UD PRN; Protocol PRN Reason: Hypoglycemia Protocol Stop: 12/22/19 10:29 Docusate Sodium (Docusate Sodium 100 Mg Cap) 100 mg PO BID FERDINAND Stop: 12/22/19 20:59 Ferrous Gluconate (Ferrous Gluconate 324 Mg Tab) 324 mg PO BIDM FERDINAND Stop: 12/22/19 16:59 Last Admin: 11/22/19 16:59 Dose: 324 mg Documented by: Glucagon (Glucagon For Inj 1 Mg Vial) 1 mg IM UD PRN; Protocol PRN Reason: Hypoglycemia Protocol Stop: 12/22/19 10:29 Glucose (Glucose 40% Gel 15 Gm Tube) 15 - 30 gm PO UD PRN; Protocol PRN Reason: Hypoglycemia Protocol Stop: 12/22/19 10:29 Glucose (Glucose 10 Tabs/Tube) 4 - 8 tabs PO UD PRN; Protocol PRN Reason: Hypoglycemia Protocol Stop: 12/22/19 10:29 Hydromorphone HCl (Hydromorphone Inj 0.5 Mg/0.5 Ml Syr) 0.5 mg IV Q4H PRN PRN Reason: Pain or Pre PT Stop: 12/06/19 10:08 Cefazolin Sodium (Ancef 2000mg) 2,000 mg in 15 mls @ 3.75 mls/min IV Q8H FERDINAND; Protocol Stop: 11/22/19 23:03 Last Admin: 11/22/19 14:12 Dose: 3.75 mls/min Documented by: Sodium Chloride (Nss 1000ml) 1,000 mls @ 100 mls/hr IV .Q10H FERDINAND Stop: 11/23/19 06:00 Last Admin: 11/22/19 12:15 Dose: 100 mls/hr Documented by: Insulin Aspart (Insulin Aspart 100 Units/Ml 3 Ml Pen) 0 units SC ACHS FERDINAND Stop: 12/22/19 10:59 Last Admin: 11/22/19 17:43 Dose: 9 units Documented by: Insulin Aspart (Insulin Aspart 100 Units/Ml 3 Ml Pen) 0 units SC 0000,[id number] [facility] Stop: 11/23/19 04:01 Lisinopril (Lisinopril 40 Mg Tab) 40 mg PO QAM [facility] Stop: 12/23/19 08:59 Magnesium Hydroxide (Magnesium Hydroxide Susp 30 Ml Udc) 30 ml PO Q6H PRN PRN Reason: Constipation Stop: 12/22/19 10:08 Metoprolol Succinate (Metoprolol Succ 50mg Ext Rel Tab) 100 mg PO QAM [facility] Stop: 12/23/19 08:59 Miscellaneous (Carbohydrates For Hypoglycemia ) 15 - 30 gm PO UD PRN PRN Reason: Hypoglycemia Treatment Stop: 12/22/19 10:29 Miscellaneous Information (Pharmacy Glycemic Mgmt Consult) 1 ea N/A UD PRN PRN Reason: Consult Stop: 12/22/19 10:21 Multivitamins (Multivitamin Tab) 1 tab PO QAM [facility] Stop: 12/23/19 08:59 Naloxone HCl (Naloxone Hcl 0.4 Mg/1 Ml Vial/Carp) 0.1 mg IV Q5M PRN PRN Reason: Oversedation/Resp Depression Stop: 12/22/19 10:08 Ondansetron HCl (Ondansetron Inj 2 Mg/Ml 2 Ml Vial) 4 mg IV Q6H PRN PRN Reason: Nausea And Vomiting Stop: 12/22/19 10:08 Oxycodone HCl (Oxycodone Hcl Ir 5 Mg Tab (Immediate Release)) 5 - 10 mg PO Q4H PRN PRN Reason: Pain or Pre PT Stop: 12/06/19 10:08 Last Admin: 11/22/19 17:03 Dose: 5 mg Documented by: Potassium Chloride (Potassium Chloride 10 Meq Tabcr) 10 meq PO BID [facility] Stop: 12/22/19 20:59 Sennosides (Senna 8.6 Mg Tab) 17.2 mg PO HS [facility] Stop: 12/22/19 20:59
[2019-11-22] MEDS: FERROUS GLUCONATE 324 MG TAB PO SCH (16:59)
[2019-11-22] MEDS: OXYCODONE HCL IR 5 MG TAB (IMMEDIATE RELEASE) PO PRN (17:03)
[2019-11-22] MEDS ORDERED: METFORMIN HCL 500 MG TAB PO SCH (21:00)
[2019-11-22] MEDS ORDERED: ATORVASTATIN 40 MG TAB PO SCH (21:00)
[2019-11-22] MEDS ORDERED: SENNA 8.6 MG TAB PO SCH (21:00)
[2019-11-22] MEDS: POTASSIUM CHLORIDE 10 MEQ TABCR PO SCH (21:03)
[2019-11-22] MEDS: DOCUSATE SODIUM 100 MG CAP PO SCH (21:04)
[2019-11-23] MEDS: INSULIN ASPART 100 UNITS/ML 3 ML PEN SC SCH ×3 (03:46→13:02)
[2019-11-23] MEDS: ACETAMINOPHEN 500 MG TAB PO SCH (05:44)
[2019-11-23] MEDS: OXYCODONE HCL IR 5 MG TAB (IMMEDIATE RELEASE) PO PRN ×2 (05:45→11:41)
[2019-11-23 06:11] LABS: Hematocrit (blood only) 33.5 % (42-52); Hemoglobin 11.8 g/dL (14.0-18.0); Mean Corpuscular Hemoglobin 32.8 pg (25-34); Mean Corpuscular Hgb Conc 35.2 g/dL (32-36); Mean Corpuscular Volume 93.1 fL (80-100); Mean Platelet Volume 9.8 fL (7.4-10.4); Platelet Count 229 K/uL (130-400); RDW Coefficient of Variation 13.1 % (11.5-14.5); RDW Standard Deviation 44.4 fL (36.4-46.3); White Blood Count 13.74 K/uL (4.8-10.8)
[2019-11-23 06:43] LABS: BUN Creatinine Ratio 15.6 (10-20); Calcium 8.1 mg/dl (8.5-10.1); Creatinine Clr Calc Pharmacy 71.6 ml/min; Est GFR (Non-African American) 61.3; Potassium 4.1 mmol/L (3.5-5.1)
[2019-11-23] MEDS ORDERED: NovoLIN-N (NPH) PER UNIT CHARGE SQ SCH (07:30)
[2019-11-23] MEDS: POTASSIUM CHLORIDE 10 MEQ TABCR PO SCH (08:42)
--- NOTE | 2019-11-23 08:42 | Orthopedic Progress Note ---
Date of Service November 23, 2019 Assessment & Plan (1) Status post right knee replacement: POD #1, Right TKA PT/ OT DVT proph- Eliquis D/C plans- Home w OPPT As per medicine. Admission and Anticipated Discharge Date Admission Date: November 22, 2019 Subjective POD #1, Feeling well. Denies SOB, CP, N/V. Pain controlled well. Wishes OPPT Physical Exam Physical Exam: Right knee dressings c/d/i, no drainange. Toes/ ankle mobile. No calf tenderness. A&Ox3. Results & Data ([facility]) Vital Signs (Past 12 Hours) Vital Signs Temp Pulse Resp BP Pulse Ox 11/23/19 07:21 36.4 C L 73 18 149/82 H 97 11/23/19 03:56 36.7 C 67 18 135/77 95 11/23/19 00:04 36.4 C L 71 16 169/76 H 96
[2019-11-23] MEDS: DOCUSATE SODIUM 100 MG CAP PO SCH (08:43)
[2019-11-23] MEDS: FERROUS GLUCONATE 324 MG TAB PO SCH (08:44)
--- NOTE | 2019-11-23 08:50 | Hospitalist Progress Note ---
Date of Service November 23, 2019 Assessment & Plan (1) Status post right knee replacement: - POD#[address] Toussaint - activity and wound care orders as per ortho - pain control with bowel regimen - PT/OT - monitor H/H for acute blood loss anemia and transfuse blood products PRN (2) Atrial fibrillation, permanent: -anticoagulated on Eliquis - resumed this morning per ortho -rate controlled on metoprolol (3) Diabetes mellitus, type 2: -hgb a1c 6.9 10/2019 -hold oral agents and utilize insulin protocol while hospitalized -glycemic pharmacy consult placed by ortho (4) Hypertension: -BP controlled, continue metoprolol and lisinopril -Instructed to resume HCTZ upon return home (5) DVT prophylaxis: Eliquis Patient seen in collaboration with Dr. Schmitt. Please see addendum. Thank you for this consultation. We will follow the patient with you during their hospital stay. You can reach a member of the [facility] Hospitalist Team 28/10 via pager @ [phone]. Admission and Anticipated Discharge Date Admission Date: November 22, 2019 Supervising Physician Co-Signing Physician Notes Pt was seen and examined. Agreed with Marilee BURGESS exam, assessment and plan. Day#1 Status post right Total Knee Arthroplasty performed by Dr. Toussaint. No Postop complications. Hgb Stable. Walk in the hallway with physical therapy. Continue PT/OT. Pain control. Fall precaution. Continue incentive spirometry. Continue monitor. MD Keshia Subjective Seen and examined in 307-1. Feeling well today. Denies surgical site pain and has been participating with therapy this morning. Tolerating diet without issue. Denies fever, chills, headache, lightheadedness, visual changes, chest pain, palpitations, shortness of breath, abdominal pain,dysuria or diarrhea. Passing flatus. Review of Systems Review of Systems: At least ten systems reviewed and negative except as noted in the HPI. Physical Exam Physical Exam: General Appearance: WD/WN, vitals as above, NAD, sitting in bedside chair, pleasant, conversing easily Head: normocephalic, atraumatic Eyes: normal inspection, PERRL, conjunctivae normal, anicteric sclerae ENT: external ear and nose normal, oropharynx normal Neck: trachea midline, no thyromegaly, normal visual inspection Respiratory: normal respiratory effort, lungs clear to auscultation, no wheeze, rales, rhonchi. Normal insp/exp effort, no accessory muscle use Cardiovascular: regular rate, rhythm, no murmur, normal peripheral pulses Chest: normal inspection of chest Abdomen/GI: normal bowel sounds, soft, nontender, no hepatosplenomegaly Extremities/Musculoskeletal: R knee surgical dressing clean, dry, intact. NVI. No cyanosis or clubbing, extremities motor strength 5/5 Neurologic: PERRL, EOMI, accommodation nl, no face palsy, no dysarthria, CN's II-XI intact bilaterally and moves all extremities Psychiatric: A+Ox3, euthymic affect Skin: no rashes, normal color, warm/dry Results & Data Results & Data ([facility]) Vital Signs (Past 12 Hours) Vital Signs Temp Pulse Resp BP Pulse Ox 11/23/19 07:21 36.4 C L 73 18 149/82 H 97 11/23/19 03:56 36.7 C 67 18 135/77 95 11/23/19 00:04 36.4 C L 71 16 169/76 H 96 Laboratory Results Short CBC 11/23/19 Range/Units 05:39 WBC 13.74 H (4.8-10.8) K/uL Hgb 11.8 L (14.0-18.0) g/dL Hct 33.5 L (42-52) % Plt Count 229 (130-400) K/uL BMP 11/23/19 05:39 Sodium 133 L Potassium 4.1 Chloride 102 Carbon Dioxide 24 BUN 18 Creatinine 1.18 Glucose 147 H Calcium 8.1 L
[2019-11-23] MEDS ORDERED: glipiZIDE ER 2.5 MG TABCR PO SCH (09:00)
[2019-11-23] MEDS ORDERED: METOPROLOL SUCC 50MG EXT REL TAB PO SCH (09:00)
[2019-11-23] MEDS ORDERED: lisinopriL 40 MG TAB PO SCH (09:00)
[2019-11-23] MEDS ORDERED: APIXABAN 5 MG TABLET PO SCH (09:00)
[2019-11-23] MEDS ORDERED: ASPIRIN 81 MG ECTAB PO SCH (09:00)
[2019-11-23] MEDS ORDERED: AMLODIPINE BESYLATE 5 MG TAB PO SCH (09:00)
[2019-11-23] MEDS ORDERED: MULTIVITAMIN TAB PO SCH (09:00)
--- NOTE | 2019-11-23 10:09 | Pharmacy Report ---
Glycemic Control Progress Note - Date of Service November 23, 2019 - Scope Glycemic Pharmacist consulted for glycemic control to write orders per [facility] inpatient glycemic control protocol. - Objective Accuchecks BSG(last 24 hours):: 11/22/19 11/22/19 11/22/19 11:27 17:14 20:31 Glucose POC Glucose 200 H 183 H 174 H 11/22/19 11/23/19 11/23/19 23:51 03:43 05:39 Glucose 147 H POC Glucose 163 H 159 H 11/23/19 08:09 Glucose POC Glucose 172 H HbA1c:: Hemoglobin A1c 6.9 % (4.5-5.6) H 11/05/19 10:52 - Recent Pertinent Medications The patient is currently receiving: * Basal insulin: NPH 30 units SQ x 1 * Correctional Insulin: Novolog Correction per scale ACHS Goal Range: Low 110 mg/dL - High 140 mg/dL Correction Factor: 18 mg/dL/unit * Prandial insulin: Per carb ratio of 1 unit per 6 grams CHO consumed - Outpatient Anti-Diabetic Meds metformin 1 gm PO BID glipizide ER 2.5 mg PO daily - Assessment & Plan ASSESSMENT: * See progress note from 11/22/2019 for more background info, in short: * Pt receiving SQ basal bolus insulin regimen for hyperglycemia secondary to baseline DM (outpatient regimen on hold). Patient is POD 1 for R knee. He received dexamethasone 4 mg IV intraoperatively. * Patient is currently receiving an average of 53 units of insulin per day * 30 units of basal insulin * 23 units of prandial/correctional insulin * BSGs ranging 163 - 200 mg/dl over the past 24hrs * Changes needed to insulin regimen: * AM Fasting BSG = 147 mg/dl. This is slightly above goal range for patient based on inpatient targets and co-morbidities. Will give one more additional NPH dose to further cover hyperglycemia from steroids. This time 15 units. * Post-prandial BSGs are in range therefore no changes needed to CF/CR. Will consider loosening this evening or tomorrow as steroid hyperglycemia dissipates. * Total daily dose = ? units. Will decrease the further out patient is from surgery. * Additional notes / comments: restart metformin tonight PLAN FOR INPATIENT GLYCEMIC CONTROL: * NPH 15 units SQ x1 * Continuing correction factor of 18 mg/dl/unit * Continuing carb ratio of 1 unit per 6 grams CHO consumed * Continuing goal range of Low 110 mg/dL - High 140 mg/dL RECOMMENDATIONS FOR DISCHARGE: * see note from 11/22/19 Thank you.
[2019-11-23] MEDS ORDERED: METFORMIN HCL 500 MG TAB PO SCH (17:00)
--- NOTE | 2019-11-27 02:19 | Discharge Summary (DS) ---
DISCHARGE DIAGNOSIS: Degenerative joint disease, right knee. SECONDARY DIAGNOSES: Hypertension, hypercholesterolemia, atrial fibrillation, diabetes mellitus, rheumatoid arthritis, sciatica, obesity. CONSULTS: ASHWIN Avendano/Mary Hector DO. COMPLICATIONS: None. PROCEDURES: Right total knee arthroplasty performed by Dr. Toussaint on 11/22/2019. BRIEF HISTORY: As dictated in the history and physical. HOSPITAL SUMMARY: The patient was admitted on the above-noted date and had the above-noted surgery performed, which he tolerated well. On the first postoperative day, patient was feeling well and had no complaints. Pain was controlled and was planning for outpatient PT upon discharge. Dressings were clean, dry and intact. Toes and ankle were mobile. He had no calf tenderness and vital signs were stable and they were afebrile. Hemoglobin was 11.8. He was started on PT and OT protocols and continued on DVT prophylaxis and pain management as well as medical management. He progressed well with his physical therapy and is remaining stable and it was felt he could be discharged to home on 11/23/2019. For further review, please see chart. LABORATORY AND X-RAY DATA: As per chart. DISCHARGE INSTRUCTIONS: The patient was discharged to home in satisfactory condition on 11/23/2019. DIET: Regular. ACTIVITY: Weightbearing as tolerated on the right lower extremity. Follow TK instruction sheets and special care instructions as noted. Follow up with Dr. Toussaint in 2 weeks. The patient to call for appointment if one has not been made for you. DISCHARGE MEDICATIONS: Acetaminophen 1000 mg p.o. q. 8 hours, oxycodone 5 mg p.o. q. 4 hours p.r.n. Resume home meds as listed including Eliquis 5 mg p.o. b.i.d. for DVT prophylaxis and stop taking naproxen.
== END 2019-11-23 13:50 | disposition home or self-care (01) ==
LOC: ASU 04:57 → 3E 04:57

== ENCOUNTER 2021-11-05 10:02 | Inpatient (IN) ==
--- NOTE | 2021-10-10 16:23 | PAT Medication Instructions ---
Medication Instructions Date of Service October 10, 2021 Home Medications Medication Instructions Recorded blood sugar diagnostic (Accu-Chek #2 box 11/23/18 Jaqueline Plus test strp) apixaban 5 mg tablet (Eliquis) 5 mg PO BID #180 tab 07/12/21 aspirin 81 mg tablet,delayed release (Amparo Low Dose Aspirin) 81 mg PO QAM atorvastatin 40 mg tablet 40 mg PO HS cholecalciferol (vitamin D3) 25 mcg (1,000 unit) capsule (Vitamin D3) 1,000 unit PO QAM coenzyme Q10 100 mg capsule (CoQ-10) 100 mg PO QAM hydrochlorothiazide 25 mg tablet 25 mg PO QAM lisinopril 40 mg tablet 40 mg PO QAM metformin 500 mg tablet 1,000 mg PO BID metoprolol succinate 100 mg tablet,extended release 24 hr 100 mg PO QAM potassium chloride 10 mEq capsule,extended release 10 meq PO BID amlodipine 5 mg tablet 5 mg PO QAM glipizide 2.5 mg tablet, extended release 24 hr 5 mg PO QAM apixaban 5 mg tablet (Eliquis) 5 mg PO BID clopidogrel 75 mg tablet (Plavix) 75 mg PO QAM pregabalin 75 mg capsule 75 mg PO QAM sildenafil 100 mg tablet 20 - 100 mg PO UD PRN ASK your prescriber and surgeon aspirin 81 mg tablet,delayed release (Amparo Low Dose Aspirin) 81 mg PO QAM apixaban 5 mg tablet (Eliquis) 5 mg PO BID clopidogrel 75 mg tablet (Plavix) 75 mg PO QAM STOP taking 2 weeks before surgery (or as soon as possible if surgery is within 2 weeks) coenzyme Q10 100 mg capsule (CoQ-10) 100 mg PO QAM DO NOT take the morning of surgery cholecalciferol (vitamin D3) 25 mcg (1,000 unit) capsule (Vitamin D3) 1,000 unit PO QAM hydrochlorothiazide 25 mg tablet 25 mg PO QAM lisinopril 40 mg tablet 40 mg PO QAM metformin 500 mg tablet 1,000 mg PO BID potassium chloride 10 mEq capsule,extended release 10 meq PO BID glipizide 2.5 mg tablet, extended release 24 hr 5 mg PO QAM sildenafil 100 mg tablet 20 - 100 mg PO UD PRN Take morning of surgery With a small sip of water, OTHERWISE NOTHING TO EAT OR DRINK AFTER MIDNIGHT: metoprolol succinate 100 mg tablet,extended release 24 hr 100 mg PO QAM amlodipine 5 mg tablet 5 mg PO QAM pregabalin 75 mg capsule 75 mg PO QAM Take evening before surgery atorvastatin 40 mg tablet 40 mg PO HS metformin 500 mg tablet 1,000 mg PO BID potassium chloride 10 mEq capsule,extended release 10 meq PO BID sildenafil 100 mg tablet 20 - 100 mg PO UD PRN (if needed) Other Notes If you have any questions please call us at [phone] or [phone] or [phone] or [phone]
--- NOTE | 2021-10-16 11:35 | Anesthesiology Consultation ---
Date of Service October 16, 2021 Assessment & Plan (1) Encounter for pre-operative examination: - anesthesiologist request for Dr. Hammond or Dr. Luciano forwarded to anesthesia team and marked on OR sheet. - medical clearance 10/19. - cardiac clearance 10/19. - will obtain most recent Dr. Castanon office note 10/16. - difficult intubation: 04/03/16: "Left Femoral Endarectomy with stent=unable to visualize cords with MAC 4. Large epiglottis. Unable to lift out of view. Mijares 3 able to move epiglottic but unable to visualize cords even with cricoid pressure. Glidescope#4 good view of cords. Easy placement of ETT." - COVID screening: Per assessment on 10/16/2021: Travel screen negative, no known COVID-19 positive contacts or current COVID-19 related symptoms in past 2 weeks. Pt vaccinated. Surgeon arranging preop COVID testing, scheduled 11/01/2021. Awaiting results. Chart Review Chart Review: Pending: Refer to Additional Notes / Consult section and Patient seen in Pre Admission Testing Teaching & Discussion Pre-Anesthesia Teaching/Discussion Notes: Instructed NPO after midnight before surgery, except medications with 15 cc of water. Medication instructions provided according to the PAT guidelines. History Surgery Operation Date: 11/05/21 07:45 Proposed Procedures p L2-L3 Decompression and Fusion, L3-S1 Hardware Removal, Spinal Cord Monitoring - Curt Rogers, Height/Weight Height: 5 ft 9 in Weight: 114.6 kg Allergies Allergy/AdvReac Type Severity Reaction Status Date / Time No Known Drug Allergies Allergy Verified 10/04/21 10:19 Medications Home Medications Medication Instructions Recorded Confirmed Last Taken aspirin 81 mg tablet,delayed 81 mg PO QAM 05/19/18 10/04/21 07/13/21 03:30 release (Amparo Low Dose Aspirin) atorvastatin 40 mg tablet 40 mg PO HS 05/19/18 10/04/21 07/12/21 17:00 cholecalciferol (vitamin D3) 25 1,000 unit PO QAM 05/19/18 10/04/21 07/13/21 03:30 mcg (1,000 unit) capsule (Vitamin D3) coenzyme Q10 100 mg capsule 100 mg PO QAM 05/19/18 10/04/21 07/13/21 03:30 (CoQ-10) hydrochlorothiazide 25 mg tablet 25 mg PO QAM 05/19/18 10/04/21 07/13/21 03:30 lisinopril 40 mg tablet 40 mg PO QAM 05/19/18 10/04/21 07/13/21 03:30 metformin 500 mg tablet 1,000 mg PO BID 05/19/18 10/04/21 07/12/21 17:00 metoprolol succinate 100 mg 100 mg PO QAM 05/19/18 10/04/21 07/13/21 03:30 tablet,extended release 24 hr potassium chloride 10 mEq 10 meq PO BID 05/19/18 10/04/21 07/13/21 03:30 capsule,extended release blood sugar diagnostic (Accu-Chek #2 box 11/23/18 10/04/21 Unknown Jaqueline Plus test strp) amlodipine 5 mg tablet 5 mg PO QAM tab 12/21/18 10/04/21 07/13/21 03:30 glipizide 2.5 mg tablet, extended 5 mg PO QAM tab 10/26/20 10/04/21 07/13/21 03:30 release 24 hr apixaban 5 mg tablet (Eliquis) 5 mg PO BID #180 tab 07/12/21 10/04/21 07/11/21 17:00 clopidogrel 75 mg tablet (Plavix) 75 mg PO QAM 10/04/21 10/04/21 Unknown pregabalin 75 mg capsule 75 mg PO QAM 10/04/21 10/04/21 Unknown sildenafil 100 mg tablet 20 - 100 mg PO UD PRN #50 tab 10/16/21 Unknown Past Medical History Medical History (Updated 10/16/21 @ 12:38 by Irene Angelo PA-C) Atrial fibrillation on Eliquis; f/u [facility] cardio Chronic back pain Claudication in peripheral vascular disease s/p stents; chronic claudication without change or worsening per pt, follows with [facility] vascular Diabetes mellitus, type 2 NIDDM Diverticular disease denies hx diverticulitis Dyslipidemia Hypertension controlled, stable per pt Obesity PAD (peripheral artery disease) s/p Left Common Femoral Endarterectomy and Left Iliac Artery Stent (2016) Dr. Castanon @[facility], placed x4 "stents in my left leg and a star closure placed" 07/13/21 Temporomandibular joint disorder occasional clicking, no locking Patient denies h/o stroke, seizures, heart attack, heart failure, blood clots or blood transfusions. Exercise / Class Metabolic Activity II 4-5 Yardwork/Stairs/Walk up hill (denies CP or SOB with 1 FOS) Past Family History Family History Father Family history of diabetes mellitus Heart disease Brother Family history of diabetes mellitus Mother Heart disease Hypertension Past Surgical History Surgical History (Updated 10/16/21 @ 13:43 by Irene Angelo PA-C) Fusion of spine LUMBAR X2 History of arthroscopy of shoulder L History of cataract surgery BILATERAL History of colonoscopy History of difficult intubation 04/03/16: "Left Femoral Endarectomy with stent=unable to visualize cords with MAC 4. Large epiglottis. Unable to lift out of view. Mijares 3 able to move epiglottis but unable to visualize cords even with cricoid pressure. Glidescope#4 good view of cords. Easy placement of ETT." History of laminectomy LUMBAR X3 History of tonsillectomy History of total knee replacement Lt/Rt Hx of amputation Lt. thumb partial amputation "nail still there, just very thin into the bone" Hx of myringotomy bilat. "long time ago" S/P vascular surgery LEFT FEM-POP OTOLARYNGOLOGY NURSE RIGHT FEMORAL 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 Large epiglottis. Unable to lift out of view. Mijares 3 able to move epiglottis but unable to visualize cords even with cricoid pressure. Glidescope#4 good view of cords. Easy placement of ETT. Past Anesthesia History Difficult Airway (see 04/03/16 vascular surgery notation: "unable to visualize cords with MAC 4, large epiglottis, Mijares 3 able to move epiglottis, unable to visualize cords, glidescope #4 successful) and No Family Hx of Anesthesia Complications History of PONV No Hx of PONV and No Hx of Motion Sickness Social History Smoking Status: Former smoker Do You Dip or Chew Tobacco: No Smoking End Date: quit 20 years ago Hx Alcohol Use: Yes Alcohol type: beer alcohol intake frequency: holidays/special occasions only Hx Substance Use: No substance use type: does not use Review of Systems Patient denies chest pain, shortness of breath, dyspnea on exertion, snoring, witnessed apneas, reflux, fever, chills, cough, wheezing, or palpitations. Physical Exam Vital Signs Vitals BP 132/78 P 70 TEMP 97.8 SP02 97% on RA RESP 18 Physical Full cervical extension range of motion without pain TMD 3.5 finger breaths Mallampati Score 2 Dentition: intact, denies chipped or loose teeth, caps/crowns, implants or bridges Lungs: normal respiratory effort. Clear throughout to auscultation, no adventitious breath sounds Cardiac: regular rate and rhythm, no murmurs noted Carotid arteries: negative bruit bilat Lab Results Anesthesia Preop Results Results Anesthesia Widget: WBC 6.29 K/ul (4.8-10.8) 10/16/21 Hgb 13.3 g/dl (14.0-18.0) L 10/16/21 Hct 38.9 % (40.1-51.0) L 10/16/21 Plt 197 K/uL (130-400) 10/16/21 Na 135 mmol/L (136-145) L 10/16/21 K 4.6 mmol/L (3.5-5.1) 10/16/21 Cl 101 mmol/L (98-107) 10/16/21 CO2 29 mmol/L (21-32) 10/16/21 BUN 30 mg/dl (6-23) H 10/16/21 Creat 1.34 mg/dl (0.6-1.4) 10/16/21 Glucose Level 148 mg/dl (70-99(Fasting)) H 10/16/21 PT 11.8 Seconds (9.0-12.0) 10/16/21 PTT 28.8 Seconds (21.0-31.0) 10/16/21 INR 1.1 (0.9-1.1) 10/16/21 Urine Color Yellow 10/16/21 Urine Appearance Clear (Clear) 10/16/21 Urine pH 5.5 (4.5-7.5) 10/16/21 Urine Specific [place] 1.008 (1.000-1.030) 10/16/21 Urine Protein Negative (Negative) 10/16/21 Urine Glucose (UA) Negative (Negative) 10/16/21 Urine Ketones Negative (Negative) 10/16/21 Urine Blood Negative (Negative) 10/16/21 Urine Nitrite Negative (Negative) 10/16/21 Urine Bilirubin Negative (Negative) 10/16/21 Urine Urobilinogen Negative (Negative) 10/16/21 Urine Leukocyte Esterase Negative (Negative) 10/16/21 Blood Type A Positive 10/16/21 Antibody Screen NEGATIVE 10/16/21 Testing Electrocardiogram Date: 07/02/21 Afib, rate 72 bpm Chest X-Ray Date: 10/16/21 No lines and tubes are seen. Cardiomegaly is noted. The lungs are clear. No evidence of pleural effusion or pneumothorax. IMPRESSION: No acute chest disease.
[~2021-11-05 10:02] MED LIST changes: +ACETAMINOPHEN 500 MG TAB PO SCH; -APIX1TAB3 PO; -ASPI81TA28 PO; -ATOR-24 PO; -CHOL100010 PO; -COEN100C3 PO; +CeleBREX 200 MG CAP PO SCH; +GABAPENTIN 300 MG CAP PO SCH; -GLC/500 PO; -HYDR25TA4 PO; -LISI40TA PO; +LR 15ML/HR IV SCH; -METO1TAB69 PO; -OXYC-57 PO; -POTA10CA28 PO; +ROCURONIUM BROMIDE 10 MG/ML 5 ML VIAL IV ONE; +ceFAZolin 2000MG 2,000 MG/15 ML SYR IV SCH
[2021-11-05] MEDS ORDERED: LIDOCAINE 2% MPF LOCAL 5 ML VIAL INFIL ONE (14:04)
[2021-11-05] MEDS ORDERED: PROPOFOL IV EMULSION 10 MG/ML 20 ML VIAL IV ONE (14:05)
[2021-11-05] MEDS ORDERED: fentaNYL citrate 100 MCG/2 ML VIAL ONE (14:20)
[2021-11-05] MEDS ORDERED: ONDANSETRON INJ 2 MG/ML 2 ML VIAL IV PRN ×2 (14:27→18:48)
[2021-11-05] MEDS ORDERED: MEPERIDINE HCL 25 MG/ML CARP/VIAL IV PRN (14:27)
[2021-11-05] MEDS ORDERED: PHENYLEPHRINE 100MCG/ML 5ML SYR IV PRN (14:27)
[2021-11-05] MEDS ORDERED: ePHEDrine sulfate 50 MG/ML AMP IV PRN (14:27)
[2021-11-05] MEDS ORDERED: HYDROmorphone INJ 1 MG/ML SYRINGE IV PRN ×2 (14:27→18:48)
[2021-11-05] MEDS ORDERED: LABETALOL HCL IV 5 MG/ML 20ML IV PRN (14:27)
[2021-11-05] MEDS ORDERED: ATROPINE SULFATE 0.1 MG/ML 10ML SYR IV PRN (14:27)
--- NOTE | 2021-11-05 14:32 | History & Physical Bridge Note ---
Date of Service November 05, 2021 History & Physical Bridge Note I have examined the patient, reviewed the History & Physical and in the interval since the performance of the History & Physical I have noted the following changes of clinical significance: no changes noted
--- NOTE | 2021-11-05 14:33 | History & Physical Report ---
Date of Service November 05, 2021 Assessment & Plan (1) Neurogenic claudication due to lumbar spinal stenosis: Plan: L2-L3 decompression fusion, L3-S1 hardware removal History of Present Illness Chief Complaint: Back and leg pain Primary Care Provider: Phillip Neri MD This is a 75-year-old male who presents with worsening back and bilateral leg pain after failing course of nonoperative care is here for surgical intervention. Allergies Allergy/AdvReac Type Severity Reaction Status Date / Time No Known Drug Allergies Allergy Verified 11/05/21 10:23 Home Medications Medication Instructions Recorded Confirmed Type aspirin 81 mg tablet,delayed 81 mg PO QAM 05/19/18 11/05/21 History release (Amparo Low Dose Aspirin) atorvastatin 40 mg tablet 40 mg PO HS 05/19/18 11/05/21 History cholecalciferol (vitamin D3) 25 1,000 unit PO QAM 05/19/18 11/05/21 History mcg (1,000 unit) capsule (Vitamin D3) coenzyme Q10 100 mg capsule 100 mg PO QAM 05/19/18 11/05/21 History (CoQ-10) hydrochlorothiazide 25 mg tablet 25 mg PO QAM 05/19/18 11/05/21 History lisinopril 40 mg tablet 40 mg PO QAM 05/19/18 11/05/21 History metformin 500 mg tablet 1,000 mg PO BID 05/19/18 11/05/21 History metoprolol succinate 100 mg 100 mg PO QAM 05/19/18 11/05/21 History tablet,extended release 24 hr potassium chloride 10 mEq 10 meq PO BID 05/19/18 11/05/21 History capsule,extended release blood sugar diagnostic (Accu-Chek #2 Boxes 11/23/18 10/24/21 Rx Jaqueline Plus test strp) amlodipine 5 mg tablet 5 mg PO QAM 12/21/18 11/05/21 History glipizide 2.5 mg tablet, extended 5 mg PO QAM 10/26/20 11/05/21 History release 24 hr apixaban 5 mg tablet (Eliquis) 5 mg PO BID #180 tabs 07/12/21 11/05/21 Rx pregabalin 75 mg capsule 75 mg PO QAM 10/04/21 11/05/21 History sildenafil (pulm.hypertension) 20 20 mg PO TID PRN sexual activity 10/18/21 10/24/21 Rx mg tablet #50 tabs Past Med/Surg History Medical History Atrial fibrillation Chronic back pain Claudication in peripheral vascular disease Diabetes mellitus, type 2 Diverticular disease Dyslipidemia Hypertension Obesity PAD (peripheral artery disease) Temporomandibular joint disorder Surgical History Fusion of spine History of arthroscopy of shoulder History of cataract surgery History of colonoscopy History of difficult intubation History of laminectomy History of tonsillectomy History of total knee replacement Hx of amputation Hx of myringotomy S/P vascular surgery Family History Father Family history of diabetes mellitus Heart disease Brother Family history of diabetes mellitus Mother Heart disease Hypertension Social History Smoking Status: Former smoker Smoking End Date: quit 20 years ago; Second Hand Exposure: No; Do You Dip or Chew Tobacco: No; Tobacco Cessation Education Requested by Patient: No Hx Alcohol Use: Yes Alcohol type: beer Hx Substance Use: No Preferred Language: Estonian Communication Ability: Effective 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) Vital Signs (Past 12 Hours) Vital Signs Temp Pulse Resp BP Pulse Ox O2 Del Method 11/05/21 10:28 36.8 C 71 18 169/87 H 96 Room Air
[2021-11-05] MEDS ORDERED: BUPIVACAINE/EPINEPHRINE 0.25% 1:200,000 30 ML VIAL ONE (14:44)
[2021-11-05] MEDS ORDERED: ceFAZolin 330 MG/ML 1 GM VIAL ONE (14:44)
[2021-11-05] MEDS ORDERED: PHENYLEPHRINE 100MCG/ML 5ML SYR ONE (15:24)
[2021-11-05] MEDS ORDERED: ONDANSETRON INJ 2 MG/ML 2 ML VIAL ONE (15:24)
[2021-11-05] MEDS ORDERED: DEXAMETHASONE SOD INJ 4 MG/ML VIAL ONE (15:24)
[2021-11-05] MEDS ORDERED: FLOSEAL HEMOSTATIC MATRIX 10ML TOP ONE ×2 (15:58→16:33)
[2021-11-05] MEDS ORDERED: NEOSTIGMINE METHYLSULFATE 1 MG/ML 10ML VIAL ONE (16:04)
[2021-11-05] MEDS ORDERED: GLYCOPYRROLATE 0.2 MG/ML VIAL ONE ×2 (16:04)
[2021-11-05] MEDS ORDERED: PHENYLEPHRINE HCL 10 MG/ML VIAL ONE (16:04)
--- NOTE | 2021-11-05 17:30 | Operative Report ---
Post Operative Report Pre & Post Diagnosis Operation Date: 11/05/21 11:35 Pre-Op Diagnosis: Neurogenic claudication due to lumbar spinal stenosis. Post-Op Diagnosis: Neurogenic claudication due to lumbar spinal stenosis. I identified the patient and participated in the time-out.: Yes Procedure Operation Date: 11/05/21 11:35 Actual Procedures #1 removal of posterior instrumentation L2 and connectors. #2 exploration of fusion L3-L4. #3 lumbar decompression with bilateral medial facetectomies and foraminotomies L1-L2 L2-L3. #4 posterior spinal fusion L2-L3. #5 placement posterior instrumentation L2-L3. #6 interbody fusion L2-L3. #7 placement of Spira 12 x 26 mm cage at L2-L3. #8 placement locally harvested morselized autograft in the posterior gutters. 9 placement infuse collagen sponge, master graft in the posterior gutters and I factor in the interbody space. Surgeon Curt Rogers, DO Vascular Nurse Mini Rice Estimated Blood Loss 400 Findings See Below The patient is 5 foot 9 weighing over 112 kg with a BMI in excess of 36. The patient's body habitus did contribute to significant technical difficulty required deeper retractors longer instruments in order to perform his procedure. This at least 50% increased operative time. Specimens None Indications Patient has significant neurogenic claudication is here for surgical intervention. Description of Procedure Patient was met with identified informed consent obtained. Patient was then taken to the operative suite underwent a patient placed in a prone position the [place] table top Jeromy frame. All bony prominences well-padded eyes inspected to ensure no external pressure placed upon the. This point the lumbar spine was prepped and draped in normal sterile fashion. Sharp dissection with the assistance of Bovie cautery was performed down to and exposing the lamina and transverse processes of L2 and instrumentation at L3-L4. I then proceeded move the pedicle screws at L3 and the connectors at L3-4 point the fusion mass noting it to be mature and intact. I then performed a complete laminectomy of L2 partial laminectomy of L1 including bilateral medial facetectomies and foraminotomies addressing severe spinal stenosis. Pedicle screws were then placed in L2 and L3 bilaterally with assistance of fluoroscopy and reconnected to the pre-existing karla. By way of transfer approach and left complete discectomy of L to L3 was then performed. The endplates curetted to subcortical being bone and a 12 x 26 mm spiral cage filled with I factor tapped in position. The rods were then locked into final position bilaterally. The transverse processes of L2 and L3 burred to subcortically bone. Infuse collagen sponge mass graft and local autograft was placed in the posterior gutters. 15 round MARVIN drain inserted. The incision was then closed with 1 Vicryl the fascia 2-0 Vicryl subcutaneously and 4 Monocryl for final skin closure. Steri-Strip sterile dressings placed. Patient waken taken to PACU stable condition. Please note spinal cord monitoring was utilized at the procedure no changes noted. Lastly Mini Rice was present throughout the entire procedure involved the patient positioning complex portions of the surgery and final skin closure. I attest to the content of the Intraoperative Record and any orders documented therein. Any exceptions are noted below.
[2021-11-05] MEDS: fentaNYL citrate 100 MCG/2 ML VIAL IV PRN ×3 (17:57→18:07)
[2021-11-05] MEDS ORDERED: traMADol HCL 50 MG TABLET PO PRN (18:48)
[2021-11-05] MEDS ORDERED: LORazepam 0.5 MG in SYRINGE 0.25 ML IV PRN (18:48)
[2021-11-05] MEDS ORDERED: SODIUM CHLORIDE 0.9% 1000ML 1,000 ML IV SCH (18:48)
[2021-11-05] MEDS ORDERED: bisacodyL 10 MG SUPP PR PRN (18:48)
[2021-11-05] MEDS ORDERED: MAGNESIUM HYDROXIDE SUSP 30 ML UDC PO PRN (18:48)
[2021-11-05] MEDS ORDERED: diphenhydrAMINE Capsule 25 MG CAP PO PRN (18:48)
[2021-11-05] MEDS ORDERED: FAMOTIDINE 20 MG TAB PO PRN (18:48)
[2021-11-05] MEDS ORDERED: ALUMINUM/MAGNESIUM SUSP 30 ML UDC PO PRN (18:48)
[2021-11-05] MEDS ORDERED: LORazepam 0.5 MG TAB PO PRN (18:48)
[2021-11-05] MEDS ORDERED: ACETAMINOPHEN 500 MG TAB PO PRN (18:48)
[2021-11-05] MEDS ORDERED: PROMETHAZINE HCL 12.5 MG in SODIUM CHLORIDE 0.9% 50 ML IV PRN (18:48)
[2021-11-05] MEDS ORDERED: hydrOXYzine HCl 25 MG TAB PO PRN (18:48)
[2021-11-05] MEDS ORDERED: SOD PHOSPHATE/SOD BIPHOSPHATE ENEMA 132 ML BTL PR PRN (18:48)
[2021-11-05] MEDS ORDERED: METOCLOPRAMIDE HCL INJ 5 MG/ML 2 ML VIAL IV PRN (18:48)
[2021-11-05] MEDS ORDERED: PHARMACY GLYCEMIC MGMT CONSULT PRN (18:48)
[2021-11-05] MEDS ORDERED: NALOXONE HCL 0.4 MG/1 ML VIAL/CARP IV PRN (18:48)
[2021-11-05] MEDS ORDERED: ONDANSETRON 4 MG OD TAB PO PRN (18:48)
[2021-11-05] MEDS ORDERED: ACETAMINOPHEN 1,000 MG/100 ML VIAL IV PRN (18:48)
--- NOTE | 2021-11-05 18:54 | Anesthesiology Progress Note ---
Date of Service November 05, 2021 Anesthesia Post Procedure Vital Signs Vital Signs: Temp Pulse Pulse Resp BP Pulse Ox O2 Del Method 11/05/21 18:40 36.7 C 16 121/64 92 Room Air 11/05/21 18:25 36.2 C L 61 17 119/63 98 Room Air 11/05/21 18:15 60 12 122/61 96 Room Air 11/05/21 18:05 60 17 124/64 99 Oxymask 11/05/21 17:55 59 L 16 114/64 97 Oxymask 11/05/21 17:45 36.4 C L 66 71 12 110/61 97 Oxymask 11/05/21 10:28 36.8 C 71 18 169/87 H 96 Room Air O2 Flow Rate 11/05/21 18:40 11/05/21 18:25 11/05/21 18:15 11/05/21 18:05 9 11/05/21 17:55 9 11/05/21 17:45 9 11/05/21 10:28 Pain Intensity Lower Back: Pain Intensity: 4 Transfer of Care Handoff Completed per policy Notes Mental Status: alert / awake / arousable and participated in evaluation Patient Amnestic to Procedure: Yes Nausea / Vomiting: adequately controlled Pain: adequately controlled Airway Patency, RR, SpO2: stable & adequate BP & HR: stable & adequate Hydration State: stable & adequate Anesthetic Complications: no major complications apparent
--- NOTE | 2021-11-05 19:32 | Fluoroscopy Report ---
FL lumbar spine 2-3V HISTORY: 75 years-old Male L2-3 DFI L3-S1 REMOVE HARDWARE COMPARISON: Fluoroscopic images of the lumbar spine 09/13/2015 TECHNIQUE: 3 spot fluoroscopic images of the lumbar spine were obtained utilizing 10.9 seconds fluoro scopy time FINDINGS: There is posterior interbody karla and screw fusion hardware noted involving what appears to be the L2- S1 levels with L1-L2, L2-L3 and L3-L4 discectomy changes. The hardware appears intact. No unexpected opaque foreign bodies are identified. Images were submitted following completion of the surgery. IMPRESSION: Fluoroscopic assistance as above. ACT 112: Negative or not required by law. The above report was generated using voice recognition software. It may contain grammatical, syntax o r spelling errors. Electronically signed by: Tayo Smart M.D. 11/05/2021 7:30 PM
--- NOTE | 2021-11-05 19:36 | Hospitalist Consultation ---
Date of Consultation November 05, 2021 Assessment & Plan (1) S/P spinal surgery: (2) Diabetes mellitus, type 2: (3) PAD (peripheral artery disease): (4) Atrial fibrillation, permanent: (5) Hypertension: Plan This is a 75yo M with a PMH of DM type II, HTN, chronic atrial fibrillation on Eliquis, hypertension, PAD and other problems listed below who is POD#0 s/p 74 year old male with PMH DM type II, HTN, chronic A fib on Eliquis, and other problems listed below who is POD#0 s/p removal of posterior instrumentation L2 and connectors, lumbar decompression with bilateral medial facetectomies and foraminotomies L1-L2 L2-L3 and posterior spinal fusion L2-L3 by Dr. Rogers. Please see Dr. Kim's addendum for assessment and plan. Thank you for this consultation. We will follow the patient with you during their hospital stay. You can reach a member of the [facility]ist Team 28/10 via [place] Text. Supervising Physician Co-Signing Physician Notes IM ATTENDING : Patient seen and examined. History obtained from patient and records. Preceding documentation by Ms. Marilee Padilla PA-C reviewed. Final Assessment and Recommendations as follows : L SS status post surgery Clinically well A. fib, Eliquis currently on hold Hypertension, slight elevated Hyperlipidemia on statin Rx PAD status post surgery DM2, on oral medications, reasonable control as of recent hemoglobin A1c of 7.15 May 2021 Past tobacco abuse chronic anemia Continue home BP meds Hold home HCTZ until a.m. chemistry back Resume Eliquis once bleeding risk is deemed to be minimal and negligible pending postop evaluation Diabetes management as per pharmacy glycemic control service as requested by primary DVT prophylaxis. SCDs as per postop orders Thank you very much for this consultation. Dr. Yan will follow patient's progress. Text document was generated using XING voice recognition software. It may contain grammatical or spelling errors. Kindly contact undersigned for clarification of any documentation item in question. History of Present Illness Reason for Consultation: Postop medical management Requesting Physician: Dr. Rogers Attending Physician: Curt Rogers, DO History of Present Illness This is a 75yo M with a PMH of DM type II, HTN, chronic atrial fibrillation on Eliquis, hypertension, PAD and other problems listed below who is POD#0 s/p 74 year old male with PMH DM type II, HTN, chronic A fib on Eliquis, and other problems listed below who is POD#0 s/p removal of posterior instrumentation L2 and connectors, lumbar decompression with bilateral medial facetectomies and foraminotomies L1-L2 L2-L3 and posterior spinal fusion L2-L3 by Dr. Rogers. Feeling well postoperatively. Received postoperative analgesics and surgical site pain now 05/17. Has some paresthesias in bilateral lower extremities but less so after surgery. No fever or chills. Denies any headache, congestion, chest pain, shortness of breath, nausea, vomiting, abdominal pain, dysuria, diarrhea or constipation. Has Rojo catheter in place. Is on apixaban for history of atrial fibrillation. Has been held 2 days preoperatively. Allergies Allergy/AdvReac Type Severity Reaction Status Date / Time No Known Drug Allergies Allergy Verified 11/05/21 10:23 Home Medications Medication Instructions Recorded Confirmed Type aspirin 81 mg tablet,delayed 81 mg PO QAM 05/19/18 11/05/21 History release (Amparo Low Dose Aspirin) atorvastatin 40 mg tablet 40 mg PO HS 05/19/18 11/05/21 History cholecalciferol (vitamin D3) 25 1,000 unit PO QAM 05/19/18 11/05/21 History mcg (1,000 unit) capsule (Vitamin D3) coenzyme Q10 100 mg capsule 100 mg PO QAM 05/19/18 11/05/21 History (CoQ-10) hydrochlorothiazide 25 mg tablet 25 mg PO QAM 05/19/18 11/05/21 History lisinopril 40 mg tablet 40 mg PO QAM 05/19/18 11/05/21 History metformin 500 mg tablet 1,000 mg PO BID 05/19/18 11/05/21 History metoprolol succinate 100 mg 100 mg PO QAM 05/19/18 11/05/21 History tablet,extended release 24 hr potassium chloride 10 mEq 10 meq PO BID 05/19/18 11/05/21 History capsule,extended release blood sugar diagnostic (Accu-Chek #2 Boxes 11/23/18 10/24/21 Rx Jaqueline Plus test strp) amlodipine 5 mg tablet 5 mg PO QAM 12/21/18 11/05/21 History glipizide 2.5 mg tablet, extended 5 mg PO QAM 10/26/20 11/05/21 History release 24 hr apixaban 5 mg tablet (Eliquis) 5 mg PO BID #180 tabs 07/12/21 11/05/21 Rx pregabalin 75 mg capsule 75 mg PO QAM 10/04/21 11/05/21 History sildenafil (pulm.hypertension) 20 20 mg PO TID PRN sexual activity 10/18/21 10/24/21 Rx mg tablet #50 tabs Patient History Medical History Chronic back pain Claudication in peripheral vascular disease s/p stents; chronic claudication without change or worsening per pt, follows with [facility] vascular Diabetes mellitus, type 2 NIDDM Diverticular disease denies hx diverticulitis Dyslipidemia Erectile dysfunction Hypertension controlled, stable per pt Obesity PAD (peripheral artery disease) s/p Left Common Femoral Endarterectomy and Left Iliac Artery Stent (2016) Dr. Castanon @[facility], placed x4 "stents in my left leg and a star closure placed" 07/13/21 Temporomandibular joint disorder occasional clicking, no locking Surgical History Fusion of spine LUMBAR X2 History of arthroscopy of shoulder L History of cataract surgery BILATERAL History of colonoscopy History of difficult intubation 04/03/16: "Left Femoral Endarectomy with stent=unable to visualize cords with MAC 4. Large epiglottis. Unable to lift out of view. Mijares 3 able to move epiglottis but unable to visualize cords even with cricoid pressure. Glidescope#4 good view of cords. Easy placement of ETT." History of laminectomy LUMBAR X3 History of tonsillectomy History of total knee replacement Lt/Rt Hx of amputation Lt. thumb partial amputation "nail still there, just very thin into the bone" Hx of myringotomy bilat. "long time ago" S/P vascular surgery LEFT FEM-POP SILO TENDER RIGHT FEMORAL 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 Large epiglottis. Unable to lift out of view. Mijares 3 able to move epiglottis but unable to visualize cords even with cricoid pressure. Glidescope#4 good view of cords. Easy placement of ETT. Status post right knee replacement Family History Father Family history of diabetes mellitus Heart disease Brother Family history of diabetes mellitus Mother Heart disease Hypertension Social History Smoking Status: Former smoker Smoking End Date: quit 20 years ago; Second Hand Exposure: No; Do You Dip or Chew Tobacco: No; Tobacco Cessation Education Requested by Patient: No Hx Alcohol Use: Yes Alcohol type: beer Hx Substance Use: No Preferred Language: Filipino Communication Ability: Effective Vaccinator Required: No Beliefs That Will Affect Care: None marital status: Current Living Situation: Spouse current occupational status: retired Other Information That Helps Us Care for You: No Feels Safe at Home: Yes Safety Concerns: Feels Safe At This Time Assistive Devices: None Review of Systems Review of Systems: At least ten systems reviewed and negative except as noted in the HPI. Physical Exam Physical Exam: Gen: WD/WN, NAD, lying in bed HEENT: Normocephalic, atraumatic, conjunctivae moist, sclerae anicteric, mucous membranes moist Lung: Clear to Auscultation bilaterally, no wheezes/rales/rhonchi Heart: Regular rate, regular rhythm, no murmurs, rubs, or gallops Abdomen: Soft, NT, ND +BS x 4 Extremities: +Spinal dressing c/d/i. MARVIN drain visualized. No edema Neuro: A&Ox3, moves all extremities spontaneously, BLE strength 5/5 Skin: Warm, no rash Results & Data Results & Data ([facility]) Vital Signs (Past 12 Hours) Vital Signs Temp Pulse Pulse Resp BP Pulse Ox O2 Del Method 11/05/21 19:07 36.4 C L 64 17 121/70 96 Room Air 11/05/21 18:40 36.7 C 16 121/64 92 Room Air 11/05/21 18:25 36.2 C L 61 17 119/63 98 Room Air 11/05/21 18:15 60 12 122/61 96 Room Air 11/05/21 18:05 60 17 124/64 99 Oxymask 11/05/21 17:55 59 L 16 114/64 97 Oxymask 11/05/21 17:45 36.4 C L 66 71 12 110/61 97 Oxymask 11/05/21 10:28 36.8 C 71 18 169/87 H 96 Room Air O2 Flow Rate 11/05/21 19:07 11/05/21 18:40 11/05/21 18:25 11/05/21 18:15 11/05/21 18:05 9 11/05/21 17:55 9 11/05/21 17:45 9 11/05/21 10:28
[2021-11-05] MEDS ORDERED: GLUCOSE 40% GEL 15 GM TUBE PO PRN (20:15)
[2021-11-05] MEDS ORDERED: DEXTROSE 50% 50 ML SYRINGE IV PRN (20:15)
[2021-11-05] MEDS ORDERED: GLUCOSE 10 TAB/TUBE PO PRN (20:15)
[2021-11-05] MEDS ORDERED: CARBOHYDRATES FOR HYPOGLYCEMIA PO PRN (20:15)
[2021-11-05] MEDS ORDERED: GLUCAGON FOR INJ 1 MG VIAL IM PRN (20:15)
[2021-11-05] MEDS: DOCUSATE SODIUM/SENNA 50/8.6MG TAB PO SCH (20:29)
[2021-11-05] MEDS: ATORVASTATIN 40 MG TAB PO SCH (20:29)
[2021-11-05] MEDS: HYDROmorphone INJ 0.5 MG/0.5 ML SYR IV PRN (20:30)
[2021-11-05] MEDS: POTASSIUM CHLORIDE 10 MEQ TABCR PO SCH (20:32)
[2021-11-05] MEDS ORDERED: SODIUM CHLORIDE 0.9% 1000ML 1,000 ML IV ONE (21:30)
[2021-11-05] MEDS ORDERED: LANTUS PER UNIT CHARGE SQ ONE (21:45)
[2021-11-05] MEDS: INSULIN ASPART PER UNIT SC SCH (22:33)
[2021-11-05] MEDS: ceFAZolin 2000MG 2,000 MG/15 ML SYR IV SCH (22:38)
[2021-11-06] MEDS ORDERED: INSULIN ASPART PER UNIT SC SCH
[2021-11-06] MEDS: HYDROmorphone INJ 0.5 MG/0.5 ML SYR IV PRN (02:15)
[2021-11-06] MEDS: POLYETHYLENE (MIRALAX) 17 GM PACK PO SCH ×4 (05:46→23:50)
[2021-11-06 06:58] LABS: Basophils # (auto) 0.01 K/uL (0-0.2); Basophils % (auto) 0.1 %; Hematocrit (blood only) 35.4 % (40.1-51.0); Hemoglobin 12.2 g/dl (14.0-18.0); Immature Granulocytes # (auto) 0.07 K/uL (0.00-0.02); Immature Granulocytes % (auto) 0.5 %; Lymphocytes # (auto) 1.48 K/uL (1.2-3.4); Lymphocytes % (auto) 11.3 %; Mean Corpuscular Hgb Conc 34.5 g/dL (32.0-36.0); Mean Corpuscular Volume 92.9 fL (80.0-100.0); Mean Platelet Volume 10.5 fL (9.4-12.4); Monocytes # (auto) 0.86 K/uL (0.24-0.82); Monocytes % (auto) 6.6 %; Neutrophils % (auto) 81.5 %; Platelet Count 212 K/uL (130-400); RDW Coefficient of Variation 12.4 % (11.5-14.5); RDW Standard Deviation 42.5 fL (36.4-46.3); Red Blood Count 3.81 M/uL (4.63-6.08); White Blood Count 13.12 K/ul (4.8-10.8)
[2021-11-06 07:18] LABS: BUN Creatinine Ratio 15.1 (10-20); Calcium 8.8 mg/dl (8.5-10.1); Creatinine Clr Calc Pharmacy 87.6 ml/min; Est GFR (African American) 94.1 ml/min; Est GFR (Non-African American) 81.2 ml/min; Potassium 4.2 mmol/L (3.5-5.1)
[2021-11-06 07:51] LABS: Estimated Average Glucose 183 mg/dl
[2021-11-06] MEDS: oxyCODONE HCL IR 5 MG TAB (IMMEDIATE RELEASE) PO PRN ×2 (08:08→15:34)
[2021-11-06] MEDS: ceFAZolin 2000MG 2,000 MG/15 ML SYR IV SCH (08:09)
[2021-11-06] MEDS: INSULIN ASPART PER UNIT SC SCH ×4 (08:34→21:25)
[2021-11-06] MEDS: ASPIRIN 81 MG ECTAB PO SCH (08:40)
[2021-11-06] MEDS: CHOLECALCIFEROL 1,000 UNITS 25 MCG TAB PO SCH (08:40)
[2021-11-06] MEDS: PREGABALIN 75 MG CAP PO SCH (08:40)
[2021-11-06] MEDS: lisinopril 40 MG TAB PO SCH (08:40)
[2021-11-06] MEDS: amLODIPine BESYLATE 5 MG TAB PO SCH (08:40)
[2021-11-06] MEDS: POTASSIUM CHLORIDE 10 MEQ TABCR PO SCH ×2 (08:41→20:25)
[2021-11-06] MEDS: METOPROLOL SUCC 50MG EXT REL TAB PO SCH (08:41)
[2021-11-06] MEDS ORDERED: glipiZIDE ER 2.5 MG TABCR PO SCH (09:00)
[2021-11-06] MEDS ORDERED: hydroCHLOROthiazide 25 MG TAB PO SCH (09:00)
[2021-11-06] MEDS ORDERED: NON-FORMULARY MEDICATION (Coenzyme Q10 [Coq-10] 100 mg Capsule) PO SCH (09:00)
[2021-11-06] MEDS ORDERED: dexAMETHasone 6 MG in SYRINGE 0 ML IV SCH (09:00)
--- NOTE | 2021-11-06 10:40 | Pharmacy Report ---
Pharmacy Glycemic Short Note 2 - Date of Service November 06, 2021 - Glycemic Short BSG Results (Last 24 hours): 11/05/21 11/05/21 11/05/21 10:35 17:46 20:53 Glucose POC Glucose 179 H 163 H 272 H 11/06/21 11/06/21 11/06/21 01:58 06:23 07:59 Glucose 200 H POC Glucose 267 H 268 H OUTPATIENT ANTIDIABETIC REGIMEN: * Glipizide ER 5 mg PO AM * Metformin ER 1000 mg PO BIDM * HbA1c = 8.0% (11/06/21) ASSESSMENT: * Mr. Chamberlain is post-op day #1 s/p spinal fusion and decompression with Dr. Rogers. Pharmacy was consulted last evening to assist with inpatient glycemic management. * Post-op BSGs were 163-272-267 mg/dL. Received 4 mg of IV dexamethasone intra- op yesterday. Ordered and tolerating a type 2 diabetic diet. Received 20 units of Lantus at HS and 14 units of Novolog overnight. * Fasting BSG this AM was well above goal at 268 mg/dL. Will double Lantus dose to 20 units BID today. Novolog will be tightened to reflect weight and stress of 3. PLAN FOR INPATIENT GLYCEMIC CONTROL: * Hold outpatient oral diabetes medications * Basal insulin * Lantus 20 units SC BID * Bolus insulin * NovoLog per scale ACHS or Q6hrs while NPO * Goal Range: Low 110 mg/dL - High 140 mg/dL * Correction Factor: 15 mg/dL/unit * Nutritional / Prandial insulin per carb ratio of 1 unit per 5 grams CHO consumed
[2021-11-06] MEDS: LANTUS PER UNIT CHARGE SQ SCH ×2 (11:10→21:25)
--- NOTE | 2021-11-06 12:43 | Orthopedic Progress Note ---
Date of Service November 06, 2021 Assessment & Plan (1) Neurogenic claudication due to lumbar spinal stenosis: Plan: At this time we will continue physical therapy monitor his MARVIN output overly discharge home in the next few days. Admission and Anticipated Discharge Date Admission Date: November 05, 2021 Subjective Patient's back pain is controlled leg symptoms markedly improved. Physical Exam Physical Exam: Patient is in the chair at the bedside. Is good strength testing. Appears comfortable. Results & Data ([facility]) Vital Signs (Past 12 Hours) Vital Signs Temp Pulse Resp BP Pulse Ox O2 Del Method 11/06/21 11:29 36.4 C L 66 16 129/69 94 Room Air 11/06/21 08:18 36.6 C 65 16 129/85 91 Room Air 11/06/21 02:54 119/74 11/06/21 02:04 36.6 C 68 18 166/90 H 96 Room Air
--- NOTE | 2021-11-06 16:35 | Hospitalist Progress Note ---
Date of Service November 06, 2021 Assessment & Plan (1) S/P spinal surgery: (2) Diabetes mellitus, type 2: (3) PAD (peripheral artery disease): (4) Atrial fibrillation, permanent: (5) Hypertension: Plan 75yo M with a PMH of DM type II, HTN, chronic atrial fibrillation on Eliquis, hy pertension, PAD who is s/p 7 s/p removal of posterior instrumentation L2 and connectors, lumbar decompression with bilateral medial facetectomies and foraminotomies L1-L2 L2-L3 and posterior spinal fusion L2-L3 by Dr. Rogers on 11/05/21. He is being managed for the following: Status post lumbar spinal surgery Patient sitting up in chair, reports improvement in low back pain and leg symptoms. Patient doing well, hemodynamically stable, follow H&H in a.m. Pain management/DVT prophylaxis/PT OT per primary team Mild hyponatremia: Appears chronic, continue to follow, BMP in AM. Other chronic medical conditions: HTN, HLD, PAD status post surgery, DM2 on oral meds, past tobacco abuse, chronic anemia:---> Continue with/resume home meds as and when able. DVT Px: SCDs, per primary team Admission and Anticipated Discharge Date Admission Date: November 05, 2021 Subjective Patient seen and examined at bedside as a follow-up of status post spinal surgery. Exam patient was sitting up in chair, on room air, and NAD, reports improvement in low back pain and leg symptoms. Patient reports eating okay and moving gas. Patient had last bowel movement just prior to surgery yesterday. Patient denies headache/dizziness/chest pain/palpitations/other review of symptoms. Per RN, the lower back dressing was soaked and had to change in the morning. Physical Exam Physical Exam: GENERAL: Alert and oriented x3. NAD, on RA. HEENT: No pallor, no icterus. Pupils equal, round and reactive to light. Oral mucosa moist. NECK: No JVD, no neck masses. HEART: S1 and S2 heard. Regular rate and rhythm. No murmur, no gallop. RESPIRATORY SYSTEM: Normal AP diameter. No accessory muscle use. No wheezing, no crackles. ABDOMEN: Soft, bowel sounds present, nontender, no distention. CENTRAL NERVOUS SYSTEM: No facial droop. Speech is clear. Obeys simple commands. Moves extremities. EXTREMITIES: No edema, no erythema seen. Low back w/ clean dressing w/o soakage, MARVIN drain w/ serosanguinous collection noted. Results & Data Results & Data ([facility]) Vital Signs (Past 12 Hours) Vital Signs Temp Pulse Resp BP Pulse Ox O2 Del Method 11/06/21 15:25 36.5 C 64 16 121/71 91 Room Air 11/06/21 11:29 36.4 C L 66 16 129/69 94 Room Air 11/06/21 08:18 36.6 C 65 16 129/85 91 Room Air
[2021-11-06] MEDS: DOCUSATE SODIUM/SENNA 50/8.6MG TAB PO SCH (20:26)
[2021-11-06] MEDS: ATORVASTATIN 40 MG TAB PO SCH (20:26)
[2021-11-07] MEDS: POLYETHYLENE (MIRALAX) 17 GM PACK PO SCH (05:03)
[2021-11-07] MEDS ORDERED: hydroCHLOROthiazide 25 MG TAB PO SCH (09:00)
--- NOTE | 2021-11-07 09:08 | Pharmacy Report ---
Pharmacy Glycemic Short Note 2 - Date of Service November 07, 2021 - Glycemic Short BSG Results (Last 24 hours): 11/06/21 11/06/21 11/06/21 11:54 16:58 20:30 POC Glucose 253 H 272 H 243 H 11/07/21 07:58 POC Glucose 185 H OUTPATIENT ANTIDIABETIC REGIMEN: * Glipizide ER 5 mg PO AM * Metformin ER 1000 mg PO BIDM * HbA1c = 8.0% (11/06/21) ASSESSMENT: 11/07: * Zoran received a total of 93 units of insulin yesterday (40 units basal + 53 units bolus). BSGs were uncontrolled all day: [phone] mg/dL. * Fasting BSG this AM has improved to 185 mg/dL. * IV Dexamethasone was discontinued after yesterday's dose; therefore, no adjustment will be made in basal dosing today. Expect that basal will need backed off once steroid effect wears off in the next day or so. * Will tighten Novolog slightly today given continued elevations in postprandial BSGs throughout the day yesterday. 11/06: * Mr. Chamberlain is post-op day #1 s/p spinal fusion and decompression with Dr. Rogers. Pharmacy was consulted last evening to assist with inpatient glycemic management. * Post-op BSGs were 163-272-267 mg/dL. Received 4 mg of IV dexamethasone intra- op yesterday. Ordered and tolerating a type 2 diabetic diet. Received 20 units of Lantus at HS and 14 units of Novolog overnight. * Fasting BSG this AM was well above goal at 268 mg/dL. Will double Lantus dose to 20 units BID today. Novolog will be tightened to reflect weight and stress of 3. PLAN FOR INPATIENT GLYCEMIC CONTROL: * Hold outpatient oral diabetes medications * Basal insulin * Lantus 20 units SC BID * Bolus insulin * NovoLog per scale ACHS or Q6hrs while NPO * Goal Range: Low 110 mg/dL - High 140 mg/dL * Correction Factor: 12 mg/dL/unit * Nutritional / Prandial insulin per carb ratio of 1 unit per 3 grams CHO consumed
[2021-11-07] MEDS: INSULIN ASPART PER UNIT SC SCH ×2 (09:09→12:55)
[2021-11-07] MEDS: LANTUS PER UNIT CHARGE SQ SCH (09:14)
[2021-11-07] MEDS: amLODIPine BESYLATE 5 MG TAB PO SCH (09:27)
[2021-11-07] MEDS: ASPIRIN 81 MG ECTAB PO SCH (09:28)
[2021-11-07] MEDS: CHOLECALCIFEROL 1,000 UNITS 25 MCG TAB PO SCH (09:29)
[2021-11-07] MEDS: lisinopril 40 MG TAB PO SCH (09:31)
[2021-11-07] MEDS: METOPROLOL SUCC 50MG EXT REL TAB PO SCH (09:32)
[2021-11-07] MEDS: POTASSIUM CHLORIDE 10 MEQ TABCR PO SCH (09:33)
--- NOTE | 2021-11-07 09:39 | Discharge Summary ---
Date of Service November 07, 2021 Admission HPI Per Admitting Provider This is a 75-year-old male who presents with worsening back and bilateral leg pain after failing course of nonoperative care is here for surgical intervention. Principal Diagnosis Lumbar spinal stenosis with neurogenic claudication Discharge Data Allergies Allergy/AdvReac Type Severity Reaction Status Date / Time No Known Drug Allergies Allergy Verified 11/05/21 10:23 Consultations 11/05/21 18:48 Consult Hospitalist Routine Procedures Performed Operation Date: 11/05/21 11:35 Actual Procedures p L2-L3 Decompression and Fusion, Spinal Cord Monitoring - Curt Rogers DO s L3-S1 Hardware Removal - Curt Rogers DO Ordered Studies 11/05/21 11:35 FL lumbar spine 2-3V Routine Hospital Course (1) Neurogenic claudication due to lumbar spinal stenosis: Patient with lumbar decompression fusion tolerated this well was taken to the orthopedic floor postoperative. Postop day 1 he was up and ambulating progressed to postop day 2. Leg pain improved. Pain well controlled. Excellent strength testing. Separately discharged home. Discharge orders instructions from the chart for further review. Total Time Total Time Spent Total Time Spent (In Minutes): 20 minutes Discharge Plan Discharge Items Patient Disposition: Home - Self-Care Reason For Visit: Other Intervertebral Disc Degeneration, Lumbar Reg Discharge Diagnosis: Lumbar spinal stenosis with neurogenic claudication Activity: As commented below Non-emergency contact: Primary Care Provider Call non-emergency contact if: you have any medication questions Follow-up/Referrals: Phillip Neri MD [Primary Care Provider] - Diet: Regular Addtl Attending Provider Instructions: ACTIVITY RECOMMENDATIONS: SELF CARE INSTRUCTIONS AFTER THORACIC/LUMBAR FUSIONS 1. You may walk to your tolerance. It is good exercise for your legs and back. Expect some back and intermittent leg aches and pains. 2. You may perform "counter-top" level activities (make a sandwich, sindy with a project, etc.). 3. No bending or lifting of more than 10 pounds or back twisting of any nature (roll like a log when turning in bed). 4. You may ride in a car for 20-30 minutes at a time. No driving until after your first visit with your doctor. 5. Frequent changes of position and restricting sitting to 30 minutes at a time will help limit the amount of back spasms and stiffness you may experience. 6. You may discontinue the use of ambulatory aids (cane, crutches, etc.) once your strength and confidence allow. 7. You may mold maintenance technician the shower and let water strike your incision when you arrive home at least once daily. Do not take a tub bath, sit in a hot tub or go into a swimming pool until after your first recheck in the office. SPECIAL CARE INSTRUCTIONS: VERY IMPORTANT TO READ AND REVIEW A. Your surgical incision has been closed with a cosmetic suture under the skin that will dissolve in about 6 weeks. In 14 days, you can use a pair of clean scissors and cut the suture that is left outside of the skin at the ends of your incision. 1. The small skin tapes can be removed 7 days after surgery if they have not fallen off by that point. 2. You may keep the wound open to air as much as possible to promote healing after post-op day number 5 unless told otherwise by your doctor. 3. If you think the wound looks like it is becoming infected (redness or worsening drainage) and/or you are experiencing fever, chill or worsening back pain and muscle spasms, contact the office so that we may evaluate you as soon as possible. B. Complications are uncommon, but please contact us if you have any signs or symptoms of: 1. wound infection (fever higher than 102.5 degrees F, redness, separation of wound, drainage, or increasing pain from the incision) 2. blood clots in legs (pain, swelling, redness and warmth in legs) 3. urinary tract infection (fever higher than 102.5 degrees F, burning upon urination or increased frequency of urination) 4. nerve problems (inability to walk on your toes or heels, numbness, loss of bowel or bladder control) 5. any other symptoms that concern you C. Please call the office at if you have any concerns or questions about your operation or recovery. D. No smoking! Smoking drastically decreases the chance of a solid fusion. E. Do not take any anti-inflammatory medications (Indocin, Advil, Motrin, Aspirin, Naprosyn, etc.) as these may inhibit the chance of a solid fusion. Tylenol is okay to take for pain. MANAGING PAIN AFTER SPINAL SURGERY 1. Narcotic medication is intended for short-term use and will be provided for surgical pain. Surgical pain usually lasts for a period of 4-6 weeks. Narcotic medication includes Percocet, Vicodin, Darvocet, Tylenol #3 or Lortab. 2. Longer-term pain is more appropriately treated with non-narcotic medication such as Tylenol ES. 3. Muscle spasm is not appropriately treated with narcotics. Muscle relaxers such as Soma, Flexeril or Skelaxin can be used along with Tylenol ES. 4. Remember that we all live with some "aches and pains". This is not unusual or uncommon after an injury or as we get older. a. Back pain is expected and may include muscle spasms for 4 to 6 weeks after surgery. The pain should gradually improve. If the pain worsens for no apparent reason, please contact the office. b. Intermittent leg pain may also be experienced and should not be concerned about unless it worsens for no apparent reason. If so, please contact the office. 5. We will provide appropriate medication within the normal guidelines of their prescribed use. We will also be very cautious and aware of potential abuse and extended duration of patients' medication needs. a. Pain medications are for your comfort and to assist with sleep and rest so that the tissue can heal. They are not provided in order to return to normal activity and should not be used through the day. To do so or worsening pain at night can result from ongoing tissue damage and development of tolerance to the prescribed medicine. 6. Please allow 2-3 days to process refills. Prescriptions will not be mailed but must be picked up at the office. FOLLOW UP VISIT: Keep your scheduled follow-up appointment. Any questions, please call the office at . Pending Studies at Discharge: No Stand-Alone Forms: My [facility] Curriculet, Smoking Cessation Medications and DC Order Prescriptions: New oxycodone 5 mg tablet 5 mg PO Q6H PRN (Reason: pain, severe) Qty: 30 0RF tramadol 50 mg tablet 50 mg PO Q6H PRN (Reason: pain, moderate) Qty: 30 0RF Continued (DME) Accu-Chek Jaqueline Plus test strp strip See Dose Instructions .ROUTE .MEDSUPPLY Qty: 2 5RF Dose Instruction: As directed Rx Instructions: TEST 3-4 TIMES DAILY Eliquis 5 mg tablet 5 mg PO BID Qty: 180 3RF sildenafil (pulm.hypertension) 20 mg tablet 20 mg PO TID PRN (Reason: sexual activity) Qty: 50 5RF Rx Instructions: administer doses at least 4-6 hours apart metformin 500 mg Tablet 1,000 mg PO BID metoprolol succinate 100 mg Tablet Extended Release 24 Hr 100 mg PO QAM aspirin [Amparo Low Dose Aspirin] 81 mg Tablet,Delayed Release (Dr/Ec) 81 mg PO QAM hydrochlorothiazide 25 mg Tablet 25 mg PO QAM cholecalciferol (vitamin D3) [Vitamin D3] 1,000 unit Capsule 1,000 unit PO QAM atorvastatin 40 mg Tablet 40 mg PO HS coenzyme Q10 [CoQ-10] 100 mg Capsule 100 mg PO QAM potassium chloride 10 mEq Capsule, Extended Release 10 meq PO BID lisinopril 40 mg Tablet 40 mg PO QAM amlodipine 5 mg tablet 5 mg PO QAM glipizide 2.5 mg tablet extended release 24hr 5 mg PO QAM pregabalin 75 mg Capsule 75 mg PO QAM Discharge Orders: Discharge Order (Routine); Ordered 11/07/21 Ordered By: Curt Rogers Admission Data Admit Date/Time: 11/05/21 17:36 Attending Provider: Curt Rogers Admit Provider: Curt Rogers Primary Care Provider: Phillip Neri Other Providers: Mary Hector ; Mazin Katz
[2021-11-07] MEDS: PREGABALIN 75 MG CAP PO SCH (09:40)
[2021-11-07 10:07] LABS: Hematocrit (blood only) 34.2 % (40.1-51.0); Hemoglobin 11.8 g/dl (14.0-18.0); Mean Corpuscular Hemoglobin 32.5 pg (25.0-34.0); Mean Corpuscular Hgb Conc 34.5 g/dL (32.0-36.0); Mean Corpuscular Volume 94.2 fL (80.0-100.0); Mean Platelet Volume 10.7 fL (9.4-12.4); Platelet Count 207 K/uL (130-400); RDW Coefficient of Variation 12.9 % (11.5-14.5); RDW Standard Deviation 44.5 fL (36.4-46.3); Red Blood Count 3.63 M/uL (4.63-6.08); White Blood Count 16.16 K/ul (4.8-10.8)
[2021-11-07 10:33] LABS: BUN Creatinine Ratio 18.4 (10-20); Calcium 9.1 mg/dl (8.5-10.1); Creatinine Clr Calc Pharmacy 81.8 ml/min; Est GFR (African American) 87.7 ml/min; Est GFR (Non-African American) 75.6 ml/min; Potassium 4.8 mmol/L (3.5-5.1)
--- NOTE | 2021-11-07 13:02 | Hospitalist Progress Note ---
Date of Service November 07, 2021 Assessment & Plan (1) S/P spinal surgery: (2) Diabetes mellitus, type 2: (3) PAD (peripheral artery disease): (4) Atrial fibrillation, permanent: (5) Hypertension: Plan 75yo M with a PMH of DM type II, HTN, chronic atrial fibrillation on Eliquis, hy pertension, PAD who is s/p 7 s/p removal of posterior instrumentation L2 and connectors, lumbar decompression with bilateral medial facetectomies and foraminotomies L1-L2 L2-L3 and posterior spinal fusion L2-L3 by Dr. Rogers on 11/05/21. He is being managed for the following: Status post lumbar spinal surgery Patient sitting up in chair, reports improvement in low back pain and leg symptoms. Patient doing well, hemodynamically stable Pain management/DVT prophylaxis/PT OT per primary team Mild hyponatremia: Appears chronic, continue to follow, BMP in AM. Control blood glucose - follow up with PCP (has appointment 11/15/2021 for repeat labs) Other chronic medical conditions: HTN, HLD, PAD status post surgery, DM2 on oral meds, past tobacco abuse, chronic anemia:---> Continue with/resume home meds as and when able. DVT Px: SCDs, per primary team Admission and Anticipated Discharge Date Admission Date: November 05, 2021 Subjective Patient seen and examined at bedside as a follow-up of status post spinal surgery. Exam patient was sitting up in chair, on room air, and NAD, reports improvement in low back pain and leg symptoms. Patient reports eating okay and moving gas. Patient denies headache/dizziness/chest pain/palpitations/other review of symptoms. Review of Systems Review of Systems: All systems reviewed & are unremarkable except as noted in Subjective At least ten systems reviewed and negative except as noted in the HPI. Physical Exam Constitutional: WD/WN, vitals as above Eyes: PERRL, conjunctivae normal, anicteric sclerae ENMT: external ear and nose normal, oropharynx normal Neck: trachea midline, no thyromegaly Respiratory: normal respiratory effort, lungs clear to auscultation Cardiovascular: RRR, no murmur, no edema Gastrointestinal (Abdomen): normal bowel sounds, soft, nontender, no hepatosplenomegaly Percussion/Palpation: + abdomen tender (mild at site of surgery) Musculoskeletal: no cyanosis or clubbing, extremities motor strength 5/5 Skin: no rashes, warm and dry Neurologic: patellar DTR's 2+ bilat, sensation intact and PERRL, EOMI, accommodation nl, no face palsy, no dysarthria Psychiatric: A+Ox3, euthymic affect Results & Data Results & Data ([facility]) Vital Signs (Past 12 Hours) Vital Signs Temp Pulse Pulse Resp BP BP Pulse Ox 11/07/21 11:52 36.7 C 60 68 19 130/67 155/79 H 96 11/07/21 10:00 68 19 130/67 96 11/07/21 09:25 80 128/69 98 11/07/21 08:13 36.7 C 70 16 155/79 H 98 11/07/21 07:51 36.4 C L 60 19 155/85 H 95 O2 Del Method 11/07/21 11:52 11/07/21 10:00 Room Air 11/07/21 09:25 Room Air 11/07/21 08:13 Room Air 11/07/21 07:51 Room Air Laboratory Results Short CBC 11/07/21 Range/Units 09:42 WBC 16.16 H (4.8-10.8) K/ul Hgb 11.8 L (14.0-18.0) g/dl Hct 34.2 L (40.1-51.0) % Plt Count 207 (130-400) K/uL BMP 11/07/21 09:42 Sodium 132 L Potassium 4.8 Chloride 99 Carbon Dioxide 26 BUN 18 Creatinine 0.98 Glucose 293 H Calcium 9.1 Medications Administered Current Inpatient Medications Acetaminophen (Acetaminophen 500 Mg Tab) 1,000 mg PO Q8H PRN PRN Reason: MILD Pain Scale 1,2,3 & Pre PT Stop: 12/05/21 18:47 Last Admin: 11/07/21 12:29 Dose: 1,000 mg Al Hydrox/Mg Hydrox/Simethicone (Aluminum/Magnesium Susp 30 Ml Udc) 30 ml PO Q6H PRN PRN Reason: Dyspepsia Stop: 12/05/21 18:47 Amlodipine Besylate (Amlodipine Besylate 5 Mg Tab) 5 mg PO QAM [facility] Stop: 12/06/21 08:59 Last Admin: 11/07/21 09:27 Dose: 5 mg Aspirin ([facility]in 81 Mg Ectab) [facility] [place] Stop: 12/06/21 08:59 Last Admin: 11/07/21 09:28 Dose: 81 mg Atorvastatin Calcium (Atorvastatin 40 Mg Tab) 40 mg PO [facility] Stop: 12/05/21 20:59 Last Admin: 11/06/21 20:26 Dose: 40 mg Bisacodyl (Bisacodyl 10 Mg Supp) 10 mg AL DAILY PRN PRN Reason: Constipation Stop: 12/05/21 18:47 Dextrose (Dextrose 50% 50 Ml Syringe) 25 - 50 ml IV UD PRN; Protocol PRN Reason: Hypoglycemia Protocol Stop: 12/05/21 20:14 Diphenhydramine HCl (Diphenhydramine Capsule 25 Mg Cap) 25 mg PO Q6H PRN PRN Reason: Allergic Rhinitis/Insomnia Stop: 12/05/21 18:47 Famotidine (Famotidine 20 Mg Tab) 20 mg PO Q12H PRN PRN Reason: Dyspepsia Stop: 12/05/21 18:47 Glucagon (Glucagon For Inj 1 Mg Vial) 1 mg IM UD PRN; Protocol PRN Reason: Hypoglycemia Protocol Stop: 12/05/21 20:14 Glucose (Glucose 40% Gel 15 Gm Tube) 15 - 30 gm PO UD PRN; Protocol PRN Reason: Hypoglycemia Protocol Stop: 12/05/21 20:14 Glucose (Glucose 10 Tab/Tube) 4 - 8 tab PO UD PRN; Protocol PRN Reason: Hypoglycemia Protocol Stop: 12/05/21 20:14 Hydrochlorothiazide (Hydrochlorothiazide 25 Mg Tab) [address] [facility] Stop: 12/07/21 08:59 Last Admin: 11/07/21 09:29 Dose: 25 mg Hydromorphone HCl (Hydromorphone Inj 0.5 Mg/0.5 Ml Syr) 0.5 mg IV Q3H PRN PRN Reason: MODERATE Pain (Scale 4,5,6) & Pre PT Stop: 11/19/21 18:47 Last Admin: 11/06/21 02:15 Dose: 0.5 mg Hydromorphone HCl (Hydromorphone Inj 1 Mg/Ml Syringe) 1 mg IV Q3H PRN PRN Reason: SEVERE Pain (Scale 7,8,9,10) Stop: 11/19/21 18:47 Hydroxyzine HCl (Hydroxyzine Hcl 25 Mg Tab) 25 mg PO Q8H PRN PRN Reason: Anxiety Stop: 12/05/21 18:47 Promethazine HCl 12.5 mg/ (Sodium Chloride) 50.5 mls @ 202 mls/hr IV Q6H PRN PRN Reason: Nausea &/or Vomiting Stop: 12/05/21 18:47 Lorazepam 0.5 mg/ Syringe 0.5 mls @ 2 mls/min IV Q8H PRN PRN Reason: Sedation/Anxiety Stop: 12/05/21 18:47 Insulin Aspart (Insulin Aspart Per Unit) 0 units SC ACHS [facility]; Protocol Stop: 12/05/21 20:59 Last Admin: 11/07/21 12:55 Dose: 28 units Insulin Glargine (Lantus Per Unit Charge) 20 units SQ BID [facility]; Protocol Stop: 12/06/21 08:59 Last Admin: 11/07/21 09:14 Dose: 20 units Lisinopril (Lisinopril 40 Mg Tab) [address] [facility] Stop: 12/06/21 08:59 Last Admin: 11/07/21 09:31 Dose: 40 mg Lorazepam (Lorazepam 0.5 Mg Tab) 0.5 mg PO Q8H PRN PRN Reason: Sedation/Anxiety Stop: 12/05/21 18:47 Magnesium Hydroxide (Magnesium Hydroxide Susp 30 Ml Udc) 30 ml PO Q24H PRN PRN Reason: Constipation Stop: 12/05/21 18:47 Metoclopramide HCl (Metoclopramide Hcl Inj 5 Mg/Ml 2 Ml Vial) 10 mg IV Q6H PRN PRN Reason: Nausea &/or Vomiting Stop: 12/05/21 18:47 Metoprolol Succinate (Metoprolol Succ 50mg Ext Rel Tab) [address] [facility] Stop: 12/06/21 08:59 Last Admin: 11/07/21 09:32 Dose: 100 mg Miscellaneous (Carbohydrates For Hypoglycemia ) 15 - 30 gm PO UD PRN PRN Reason: Hypoglycemia Treatment Stop: 12/05/21 20:14 Miscellaneous Information (Pharmacy Glycemic Mgmt Consult) 1 each N/A UD PRN PRN Reason: Consult Stop: 12/05/21 18:47 Naloxone HCl (Naloxone Hcl 0.4 Mg/1 Ml Vial/Carp) 0.1 mg IV Q5M PRN PRN Reason: Oversedation/Resp depression Stop: 12/05/21 18:47 Ondansetron HCl (Ondansetron Inj 2 Mg/Ml 2 Ml Vial) 4 mg IV Q6H PRN PRN Reason: Nausea &/or Vomiting Stop: 12/05/21 18:47 Ondansetron HCl (Ondansetron 4 Mg Od Tab) 4 mg PO Q6H PRN PRN Reason: Nausea Stop: 12/05/21 18:47 Oxycodone HCl (Oxycodone Hcl Ir 5 Mg Tab (Immediate Release)) 5 - 10 mg PO Q4H PRN PRN Reason: Pain & Pre PT Stop: 11/19/21 18:47 Last Admin: 11/06/21 15:34 Dose: 5 mg Potassium Chloride (Potassium Chloride 10 Meq Tabcr) 10 meq PO BID [facility] Stop: 12/05/21 20:59 Last Admin: 11/07/21 09:33 Dose: 10 meq Pregabalin (Pregabalin 75 Mg Cap) [address] [facility] Stop: 12/06/21 08:59 Last Admin: 11/07/21 09:40 Dose: 75 mg Senna/Docusate Sodium (Docusate Sodium/Senna 50/8.6mg Tab) 2 tab PO HS [facility] Stop: 12/05/21 20:59 Last Admin: 11/06/21 20:26 Dose: 2 tab Sodium Biphosphate/Sodium Phosphate (Sod Phosphate/Sod Biphosphate Enema 132 Ml Btl) 132 ml AL ONE PRN PRN Reason: Constipation Stop: 12/05/21 18:47 Tramadol HCl (Tramadol Hcl 50 Mg Tablet) 50 - 100 mg PO Q4H PRN PRN Reason: Moderate-Severe pain & Pre PT Stop: 12/05/21 18:47 Vitamin D (Cholecalciferol 1,000 Units 25 Mcg Tab) 1,[address] [facility] Stop: 12/06/21 08:59 Last Admin: 11/07/21 09:29 Dose: 1,000 units
== END 2021-11-07 13:46 | disposition home or self-care (01) | DRG 454 ==
LOC: ASU 10:02 → 3W 17:36